=== PATIENT | female | born 1950 | race Caucasian/White ===

== ENCOUNTER → 2016-08-19 | Outpatient (CLI) | payer OTHER ==
[2015-08-25 04:55] VITALS: BP 152/75
[~2016-08-19] MED LIST: ALPR0.25 PO; AMLO5TAB4 PO; ASPI81TA9 PO; ATOR10TA PO; BUDE10.2 IH; CHOL2000 PO; FLUO20CA16 PO; FLUT16SP NS; HYDR-971 PO; HYDR25TA9 PO; HYDR50TA6 PO; MELO-150 PO; METO-269 PO; METO25TA9 PO; NAPR220C4 PO; OMEP1CAP25 PO; OMEP40CA5 PO; ONDA4TAB7 PO; OXYC-323 PO; PANT40TA3 PO; POTA20TA12 PO; PROAIR HFA8.5 GM IH; VILA20TA PO; WARF5TAB PO
--- NOTE | 2016-08-19 13:29 | RAD ---
DATE: 08/19/2016. EXAM: DIGITAL SCREEN BILAT W/CAD HISTORY: Routine screening. COMPARISON: 08/07/2015. This study was interpreted with the benefit of Computerized Aided Detection (CAD). FINDINGS: Both breasts show mild density. The small nodular density in the anteromedial right breast appears stable. No new mass or malignant appearing microcalcifications are seen. The axillae are unremarkable. IMPRESSION: No mammographic features suspicious for malignancy are identified. BI-RADS CATEGORY: 2 BENIGN FINDING(S) RECOMMENDED FOLLOW-UP: 12M 12 MONTH FOLLOW-UP PQRS compliance statement: Patient information was entered into a reminder system with a target due date for the next mammogram. Mammography is a sensitive method for finding small breast cancers, but it does not detect them all and is not a substitute for careful clinical examination. A negative mammogram does not negate a clinically suspicious finding and should not result in delay in biopsying a clinically suspicious abnormality. "Our facility is accredited by the [employer] Mammography Program."
== END | disposition home or self-care (01) ==
LOC: MAMMO 13:00
PROVIDERS: ATTEND Internal Medicine
DX: Z12.31 Encounter for screening mammogram for malignant neoplasm of breast (principal)
CPT/HCPCS: G0202; 77067

== ENCOUNTER → 2016-10-14 | Outpatient (CLI) | payer OTHER ==
[2015-08-25 04:55] VITALS: BP 152/75
[2016-10-14 09:35] LABS: CALCIUM 9.7 mg/dL (8.5-10.1); CREATININE 1.1 mg/dL (0.6-1.0); POTASSIUM 3.2 mmol/L (3.5-5.1)
== END | disposition home or self-care (01) ==
LOC: LAB 09:09
PROVIDERS: ATTEND Nurse Practitioner Occupational Health
DX: N39.0 Urinary tract infection, site not specified (principal)
CPT/HCPCS: 36415; 80048

== ENCOUNTER → 2016-10-23 | Day surgery (SDC) | payer OTHER ==
[~2016-10-23] MED LIST changes: +FLUT1DIS IH; +HYDR12.53 PO; +IV RINGERS,LACTATED 1000ML 1,000 ML IV SCH; +LIDOCAINE 2% PF Vial for OR 5 ML VIAL. ONE; +PROPOFOL 20 ML IV ONE
[2016-10-23 13:30] VITALS: BP 119/54
--- NOTE | 2016-10-24 11:34 | PATHOLOGY ---
PATHOLOGY REPORT * * * * * * * * FINAL DIAGNOSIS: Esophagus, distal, biopsy: - Hyperplastic squamous epithelium without significant inflammation. - Scant adjacent columnar epithelium with mild to moderate chronic inflammation and no evidence of intestinal metaplasia. (ADELINA:; d/t: 10/24/16) REPORT ELECTRONICALLY SIGNED BY: Scott Resendiz M.D. DATE/TIME: 10/24/2016 11:33 * * * * * * * * GROSS PATHOLOGY: Received in formalin labeled "Lester Quiñones and distal esophageal bx," are 4 segments of damian soft tissue measuring 1.7 x 0.2 x 0.2 cm in aggregate dimensions and ranging from 0.3 to 0.6 cm in maximum dimension. The specimen is submitted entirely in cassette A1. (TTL; 10/23/2016) INITIAL CPT CODE(S): A; 45947 Professional services performed [place] [email or web address] [place] [address] Technical services performed by [email or web address] at [address] [place] [address], [facility] [address] [address]. SPECIMEN(S) RECEIVED: A.Biopsy distal esophagus, history of Mccain's, r/o dysplasia CLINICAL HISTORY: Mccain's, GERD PATIENT: LESTER QUIÑONES /AGE: 1 1950 (Age: 66) PATIENT #: [id number] ALT CASE #: SPECIMEN COLLECTION DATE: 10/23/2016 SPECIMEN RECEIVED DATE: 10/23/2016 [facility] - [address] [place] [address] - PHONE: [phone] * * * END OF REPORT * * *
== END | disposition home or self-care (01) ==
LOC: ENDOS 11:59
PROVIDERS: ATTEND Internal Medicine Gastroenterology
DX: K22.70 Barrett's esophagus without dysplasia (principal); K29.50 Unspecified chronic gastritis without bleeding; I10 Essential (primary) hypertension; J45.909 Unspecified asthma, uncomplicated; M19.90 Unspecified osteoarthritis, unspecified site; F32.9 Major depressive disorder, single episode, unspecified; F41.9 Anxiety disorder, unspecified; E78.5 Hyperlipidemia, unspecified; J44.9 Chronic obstructive pulmonary disease, unspecified; F17.200 Nicotine dependence, unspecified, uncomplicated
CPT/HCPCS: 43239; J2704

== ENCOUNTER → 2017-02-19 | Outpatient (CLI) | payer OTHER ==
[2016-10-23 13:30] VITALS: BP 119/54
[~2017-02-19] MED LIST changes: +ASPI-612 PO; -ASPI81TA9 PO; -IV RINGERS,LACTATED 1000ML 1,000 ML IV SCH; -LIDOCAINE 2% PF Vial for OR 5 ML VIAL. ONE; -MELO-150 PO; +MELO15TA23 PO; -PROPOFOL 20 ML IV ONE; +WARF-78 PO; -WARF5TAB PO
[2017-02-19 10:53] LABS: ALBUMIN 3.6 g/dL (3.4-5.0); CALCIUM 9.3 mg/dL (8.5-10.1); CHOLESTEROL/HDL RATIO 3.1; GFR 55.8; POTASSIUM 3.9 mmol/L (3.5-5.1); TOTAL BILIRUBIN 0.5 mg/dL (0.2-1.0); TOTAL PROTEIN 7.3 g/dL (6.4-8.2)
[2017-02-19 11:04] LABS: CKMB MASS 1.8 ng/mL (0.0-3.6)
[2017-02-19 11:05] LABS: BASO % 1 % (0-3); EOS % 4 % (0-3); HEMATOCRIT 35.9 % (36.0-47.0); HEMOGLOBIN 12.5 g/dL (12.0-15.5); LYMPH # 1.5 x10^3/uL (1.0-4.8); LYMPH % 36 % (24-48); MEAN CORPUSCULAR HEMOGLOBIN 30 pg (25-35); MEAN CORPUSCULAR HGB CONC 35 g/dL (31-37); MEAN CORPUSCULAR VOLUME 86 fL (79-100); MONO % 8 % (0-9); NEUT % 52 % (31-73); PLATELET COUNT 220 x10^3/uL (140-400); RED BLOOD COUNT 4.16 x10^6/uL (3.50-5.40); RED CELL DISTRIBUTION WIDTH 14.2 % (11.5-14.5); WHITE BLOOD COUNT 4.1 x10^3/uL (4.0-11.0)
== END | disposition home or self-care (01) ==
LOC: LAB 10:05
PROVIDERS: ATTEND Nurse Practitioner Occupational Health
DX: Z01.419 Encounter for gynecological examination (general) (routine) without abnormal findings (principal)
CPT/HCPCS: 36415; 80053; 80061; 82306; 82553; 84443; 85027

== ENCOUNTER → 2017-03-23 | Outpatient (CLI) | payer OTHER ==
[2016-10-23 13:30] VITALS: BP 119/54
== END | disposition home or self-care (01) ==
LOC: LAB 09:47
PROVIDERS: ATTEND Nurse Practitioner Occupational Health
DX: R74.8 Abnormal levels of other serum enzymes (principal)
CPT/HCPCS: 36415; 84075

== ENCOUNTER → 2017-03-27 | Outpatient (CLI) | payer OTHER ==
[2016-10-23 13:30] VITALS: BP 119/54
--- NOTE | 2017-03-27 10:19 | RAD ---
Exam performed: CT chest and abdomen without contrast. History: Follow-up pulmonary and adrenal nodule. Date of service: 03/27/17. Comparison: CT chest and abdomen from 04/04/16. Technique: Contiguous helical acquisitions are obtained through the chest and abdomen without IV contrast. Sagittal and coronal reformatted images are obtained and reviewed. CT chest findings: Structures at the thoracic inlet through both lobes of the thyroid gland appear normal. Level IV contrast limits evaluation of neck and intrathoracic great vessels, however they appear normal in course and caliber. Atheromatous calcification of the aorta and coronary arteries is seen. No dominant mediastinal or hilar adenopathy is seen. Heart size is within limits of normal without pericardial effusion. Interrogation of lungs demonstrates no focal infiltrates or nodules. Previously seen tiny peripheral nodule in the right apex is unchanged. There is linear right basilar atelectasis. No pleural effusion or pneumothorax. Interrogation of bone windows demonstrates no bony abnormalities. Mild spondylotic changes are seen. Impression: 1. Previously seen tiny parenchymal opacity in the right upper lobe appears similar End impression. 2. No additional parenchymal abnormalities noted. End impression CT abdomen findings: Low attenuating 2.8 x 2.6 cm right adrenal nodule is stable. Lack of IV contrast limits evaluation of abdominal viscera however the liver, spleen and pancreas appear normal. Cholecystectomy. Left adrenal gland and bilateral kidneys are normal. There is no hydronephrosis or perinephric stranding. Mild atheromatous calcification of the aorta. Small and large bowel loops are nondilated and unremarkable. Scattered stool in the colon. No free fluid. Bones are normal. Impression: 1. Stable low attenuating right adrenal nodule system with residual adenoma. 2. No additional abnormality seen. PQRS Compliance Statement: One or more of the following individualized dose reduction techniques were utilized for this examination: 1. Automated exposure control 2. Adjustment of the mA and/or kV according to patient size 3. Use of iterative reconstruction technique
== END | disposition home or self-care (01) ==
LOC: CT 15:56
PROVIDERS: ATTEND Nurse Practitioner Occupational Health
DX: D35.01 Benign neoplasm of right adrenal gland (principal); J98.11 Atelectasis
CPT/HCPCS: 71250; 74150

== ENCOUNTER → 2017-03-27 | Outpatient (CLI) | payer OTHER ==
[2016-10-23 13:30] VITALS: BP 119/54
== END | disposition home or self-care (01) ==
LOC: US 08:29
PROVIDERS: ATTEND Internal Medicine Cardiovascular Disease
DX: I87.2 Venous insufficiency (chronic) (peripheral) (principal); D35.01 Benign neoplasm of right adrenal gland
CPT/HCPCS: 93970

== ENCOUNTER → 2017-04-22 | Outpatient (CLI) | payer OTHER ==
[2016-10-23 13:30] VITALS: BP 119/54
[~2017-04-22] MED LIST changes: +METO-239 PO; -METO25TA9 PO
--- NOTE | 2017-04-24 18:07 | RAD ---
APPROVED REPORT Bilateral Lower Extremity Venous Study for DVT Patient Location: OUT-PATIENT Indications s/p b/l gsv ablations Vein Imaging (Right) CFV (R): Compressible SFJ (R): Compressible FEM (R): Compressible POP (R): Compressible DFV (R): Compressible PTV (R): Spontaneous GSV (R): Absent Flow Peroneals (R): Spontaneous Vein Imaging (Left) CFV (L): Compressible SFJ (L): Compressible FEM (L): Compressible POP (L): Compressible DFV (L): Compressible PTV (L): Spontaneous GSV (L): Absent Flow Peroneals (L): Spontaneous Doppler Evaluation (Right) CFV (R): Spontaneous POP (R):Spontaneous Doppler Evaluation (Left) CFV (L):Spontaneous POP (L):Spontaneous Findings The bilateral deep veins of the lower extremities were evaluated for thrombus. The bilateral saphenof emoral junctions and common femoral veins do not demonstrate any evidence of thrombus and are fully c ompressible. The bilateral saphenofemoral veins were not well visualized but grossly do not demonstra te any evidence of thrombus and appear to be compressible with normal color Doppler and spectral flow . Bilateral popliteal veins are compressible with normal spectral flow. The below-knee veins are not well visualized but demonstrate spontaneous flow. The bilateral greater saphenous veins on limited pr oximal imaging appear to demonstrate no evidence of flow consistent with recent history of ablation. Critical Notification Critical Value: No <Conclusion> Negative for thrombus in the bilateral deep veins of the lower extremities Successful bilateral greater saphenous vein ablations.
== END | disposition home or self-care (01) ==
LOC: US 08:34
PROVIDERS: ATTEND Internal Medicine Cardiovascular Disease
DX: I82.493 Acute embolism and thrombosis of other specified deep vein of lower extremity, bilateral (principal); Z98.890 Other specified postprocedural states
CPT/HCPCS: 93970

== ENCOUNTER 2017-05-20 07:48 | Emergency (ER) | payer OTHER ==
[2017-05-20 07:56] VITALS: BP 173/79
--- NOTE | 2017-05-20 08:10 | PHYS DOC ---
Past Medical History Past Medical History: Anxiety, Asthma, COPD, Depression, GERD, High Cholesterol , Hypertension, Other Additional Past Medical Histor: TREMOR Past Surgical History: Cholecystectomy, Hysterectomy, Other Alcohol Use: None Drug Use: None Adult General Chief Complaint Chief Complaint: PAIN ON URINATION [facility] HPI Patient is a 66 year old female with history of hypertension, high cholesterol , acid reflex, who presents today with bladder spasms and frequency that began this morning. Patient denies any fever abdominal pain nausea vomiting. Patient denies any hematuria. Review of Systems Review of Systems Constitutional: Denies fever or chills [] Eyes: Denies change in visual acuity, redness, or eye pain [] HENT: Denies nasal congestion or sore throat [] Respiratory: Denies cough or shortness of breath [] Cardiovascular: No additional information not addressed in [facility] [] GI: Denies abdominal pain, nausea, vomiting, bloody stools or diarrhea [] : Bladder spasms and frequency, denies hematuria Musculoskeletal: Denies back pain or joint pain [] Integument: Denies rash or skin lesions [] Neurologic: Denies headache, focal weakness or sensory changes [] Endocrine: Denies polyuria or polydipsia [] Allergies Allergies Allergies Coded Allergies Type Severity Reaction Last Updated Verified regadenoson Allergy Severe LIPS SWELLED AND HIVES ON CHEST AND ARMS 10/23/16 Yes I S O L A T I O N *CONTACT* Allergy Unknown 10/23/16 Yes Physical Exam Physical Exam Constitutional: Well developed, well nourished, no acute distress, non-toxic appearance. [] HENT: Normocephalic, atraumatic, bilateral external ears normal, oropharynx moist, no oral exudates, nose normal. [] Eyes: PERRLA, EOMI, conjunctiva normal, no discharge. [] Neck: Normal range of motion, no tenderness, supple, no stridor. [] Cardiovascular:Heart rate regular rhythm, no murmur [] Lungs & Thorax: Bilateral breath sounds clear to auscultation [] Abdomen: Bowel sounds normal, soft, no tenderness, no masses, no pulsatile masses. [] Skin: Warm, dry, no erythema, no rash. [] Back: No tenderness, no CVA tenderness. [] Extremities: No tenderness, no cyanosis, no clubbing, ROM intact, no edema. [] Neurologic: Alert and oriented X 3, normal motor function, normal sensory function, no focal deficits noted. Essential tremors noted. Psychologic: Affect normal, judgement normal, mood normal. [] Current Patient Data Vital Signs Vital Signs Date Time Temp Pulse Resp B/P (MAP) Pulse Ox O2 Delivery O2 Flow Rate FiO2 05/20/17 07:56 99.1 81 16 173/79 (110) 97 Room Air 99.1 Lab Values Laboratory Tests Test 05/20/17 08:05 Urine Collection Type Unknown Urine Color Yellow Urine Clarity Cloudy Urine pH 5.5 Urine Specific Fleischmanns 1.020 Urine Protein 30 mg/dL (NEG-TRACE) Urine Glucose (UA) Negative mg/dL (NEG) Urine Ketones (Stick) Negative mg/dL (NEG) Urine Blood Large (NEG) Urine Nitrite Negative (NEG) Urine Bilirubin Negative (NEG) Urine Urobilinogen Dipstick 0.2 mg/dL (0.2 mg/dL) Urine Leukocyte Esterase Large (NEG) Urine RBC 11-20 /HPF (0-2) Urine WBC >40 /HPF (0-4) Urine Squamous Epithelial Cells Few /LPF Urine Bacteria Few /HPF (0-FEW) EKG EKG [] Radiology/Procedures Radiology/Procedures [] Course & Med Decision Making Course & Med Decision Making Pertinent Labs and Imaging studies reviewed. (See chart for details) This is a 66-year-old female patient presenting with bladder spasms and frequency. Urine positive for UTI. Discharged with Cipro and Pyridium. Push fluids. OTC pain relievers. BP was 173/79 with hx of HTN-advised to take her BP medicines and follow up with PCP. Carlotta Disclaimer Carlotta Disclaimer This electronic medical record was generated, in whole or in part, using a voice recognition dictation system. Departure Departure Impression: Primary Impression: Urinary tract infection Additional Impression: Hypertension Disposition: 01 HOME, SELF-CARE Condition: STABLE Referrals: MATTHEW SOMERS MD (PCP) Follow-up in one week Patient Instructions: Hypertension, Urinary Tract Infection, Prra-rd-Lybk Additional Instructions: You were seen with urinary tract infection. Ensure you complete your antibiotics. Take sswm-ydt-pjhsbxs pain relievers and the prescribed Pyridium as needed for pain. Push fluids. Your blood pressure was 173/79. This is elevated. Ensure you are taking your blood pressure medicines and follow up with your primary care doctor in seven days. Come back to the ED if symptoms worsen. Scripts Phenazopyridine Hcl (PYRIDIUM) 100 Mg Tablet 100 MG PO TID, #8 TAB Prov: TED CHOWDARY APRN 05/20/17 Ciprofloxacin Hcl (CIPRO) 500 Mg Tablet 1 TAB PO BID, #14 TAB Prov: TED CHOWDARY APRN 05/20/17 Problem Qualifiers Primary Impression: Urinary tract infection Urinary tract infection type: acute cystitis Hematuria presence: without hematuria Qualified Codes: N30.00 - Acute cystitis without hematuria Additional Impression: Hypertension Hypertension type: unspecified Qualified Codes: I10 - Essential (primary) hypertension TED CHOWDARY APRN May 20, 2017 08:10
[2017-05-20 08:14] LABS: BILIRUBIN,URINE NEGATIVE (NEG); GLUCOSE,URINE NEGATIVE (NEG); NITRITE,URINE NEGATIVE (NEG); PH,URINE 5.5; PROTEIN,URINE 30 mg/dL (NEG-TRACE); UROBILINOGEN,URINE 0.2 mg/dL (0.2 mg/dL)
[2017-05-20 08:34] LABS: BACTERIA,URINE FEW /HPF (0-FEW); SQUAMOUS EPITHELIAL CELL,UR FEW /LPF; WBC,URINE >40 /HPF (0-4)
[2017-05-20] MEDS ORDERED: PHENAZOPYRIDINE 200 MG TABLET. PO ONE (08:45)
[2017-05-20] MEDS ORDERED: CIPROFLOXACIN HCL 250 MG TABLET. PO ONE (08:45)
[2017-05-20] MEDS ORDERED: PHEN100T82 PO (08:47)
[2017-05-20] MEDS ORDERED: CIPR500T94 PO (08:47)
== END 2017-05-20 09:20 | disposition home or self-care (01) ==
LOC: ER 07:48
DX: N30.00 Acute cystitis without hematuria (principal); I10 Essential (primary) hypertension; F41.9 Anxiety disorder, unspecified; J44.9 Chronic obstructive pulmonary disease, unspecified; F32.9 Major depressive disorder, single episode, unspecified; K21.9 Gastro-esophageal reflux disease without esophagitis; E78.00 Pure hypercholesterolemia, unspecified; Z88.8 Allergy status to other drugs, medicaments and biological substances; Z91.041 Radiographic dye allergy status
CPT/HCPCS: 81001; 87086; 99284

== ENCOUNTER → 2017-10-01 | Outpatient (CLI) | payer OTHER, MEDICARE | END | disposition home or self-care (01) | LOC: MRI 15:44 | DX: S43.432A Superior glenoid labrum lesion of left shoulder, initial encounter (principal); X58.XXXA Exposure to other specified factors, initial encounter; Y93.89 Activity, other specified; Y92.89 Other specified places as the place of occurrence of the external cause; Y99.8 Other external cause status | CPT/HCPCS: 73221 ==

== ENCOUNTER → 2017-10-08 | Outpatient (CLI) | payer OTHER, MEDICARE ==
[2017-10-08 16:27] LABS: ADD MAN DIFF? NO; BASO % 0 % (0-3); EOS # 0.1 x10^3/uL (0.0-0.7); EOS % 2 % (0-3); HEMATOCRIT 38.4 % (36.0-47.0); HEMOGLOBIN 12.8 g/dL (12.0-15.5); LYMPH # 2.4 x10^3/uL (1.0-4.8); LYMPH % 41 % (24-48); MEAN CORPUSCULAR HEMOGLOBIN 30 pg (25-35); MEAN CORPUSCULAR HGB CONC 33 g/dL (31-37); MEAN CORPUSCULAR VOLUME 89 fL (79-100); MONO # 0.5 x10^3/uL (0.0-1.1); MONO % 8 % (0-9); NEUT # 2.8 x10^3uL (1.8-7.7); NEUT % 49 % (31-73); PLATELET COUNT 254 x10^3/uL (140-400); RED BLOOD COUNT 4.31 x10^6/uL (3.50-5.40); RED CELL DISTRIBUTION WIDTH 14.6 % (11.5-14.5); WHITE BLOOD COUNT 5.8 x10^3/uL (4.0-11.0)
[2017-10-08 16:31] LABS: ALBUMIN 3.9 g/dL (3.4-5.0); ALK PHOS 145 U/L (46-116); ALT (SGPT) 23 U/L (14-59); ANION GAP 8 (6-14); AST (SGOT) 24 U/L (15-37); BLOOD UREA NITROGEN 19 mg/dL (7-20); BUN/CREATININE RATIO 19 (6-20); CALCIUM 9.8 mg/dL (8.5-10.1); CARBON DIOXIDE 27 mmol/L (21-32); CHLORIDE 104 mmol/L (98-107); CHOLESTEROL 263 mg/dL (0-200); GFR 55.6; GLUCOSE 86 mg/dL (70-99); HDLC 56 mg/dL (40-60); LDLC 178 mg/dL (0-100); NON-HDL CHOLESTEROL 207 mg/dL (0-129); POTASSIUM 3.9 mmol/L (3.5-5.1); SODIUM 139 mmol/L (136-145); TOTAL BILIRUBIN 0.5 mg/dL (0.2-1.0); TOTAL PROTEIN 7.7 g/dL (6.4-8.2); TRIGLYCERIDES 147 mg/dL (0-150); VLDLC 29 mg/dL (0-40)
[2017-10-08 16:32] LABS: CHOLESTEROL/HDL RATIO 4.7
[2017-10-08 16:39] LABS: THYROID STIM HORMONE (TSH) 1.302 uIU/mL (0.358-3.74)
[2017-10-08 16:39] LABS: FREE T4 0.88 ng/dL (0.76-1.46)
[2017-10-08 17:32] LABS: SEDIMENTATION RATE 27 (0-25)
[2017-10-09 01:18] LABS: RHEUMATOID FACTOR <10.0 IU/mL (0.0-13.9)
== END | disposition home or self-care (01) ==
LOC: LAB 15:44
DX: I10 Essential (primary) hypertension (principal); E27.9 Disorder of adrenal gland, unspecified; M25.512 Pain in left shoulder; E78.4 Other hyperlipidemia
CPT/HCPCS: 36415; 80053; 80061; 84439; 84443; 85025; 85651; 86431

== ENCOUNTER → 2017-11-02 | Outpatient (CLI) | payer OTHER, MEDICARE | END | disposition home or self-care (01) | LOC: RAD 10:57 | DX: J18.9 Pneumonia, unspecified organism (principal); E78.5 Hyperlipidemia, unspecified; I10 Essential (primary) hypertension; Z87.891 Personal history of nicotine dependence | CPT/HCPCS: 71046 ==

== ENCOUNTER → 2018-01-11 | Outpatient (CLI) | payer OTHER, MEDICARE ==
[2018-01-11 11:14] LABS: ALBUMIN 3.5 g/dL (3.4-5.0); ALK PHOS 131 U/L (46-116); ALT (SGPT) 25 U/L (14-59); ANION GAP 9 (6-14); AST (SGOT) 19 U/L (15-37); BLOOD UREA NITROGEN 14 mg/dL (7-20); BUN/CREATININE RATIO 12 (6-20); CALCIUM 9.2 mg/dL (8.5-10.1); CARBON DIOXIDE 28 mmol/L (21-32); CHLORIDE 105 mmol/L (98-107); CHOLESTEROL 167 mg/dL (0-200); CREATINE KINASE 95 U/L (26-192); CREATININE 1.2 mg/dL (0.6-1.0); GFR 45.1; GLUCOSE 89 mg/dL (70-99); HDLC 49 mg/dL (40-60); LDLC 96 mg/dL (0-100); NON-HDL CHOLESTEROL 118 mg/dL (0-129); POTASSIUM 4.1 mmol/L (3.5-5.1); SODIUM 142 mmol/L (136-145); TOTAL BILIRUBIN 0.5 mg/dL (0.2-1.0); TOTAL PROTEIN 6.9 g/dL (6.4-8.2); TRIGLYCERIDES 109 mg/dL (0-150); VLDLC 22 mg/dL (0-40)
[2018-01-11 11:18] LABS: CHOLESTEROL/HDL RATIO 3.4
== END | disposition home or self-care (01) ==
LOC: LAB 10:07
DX: E78.5 Hyperlipidemia, unspecified (principal)
CPT/HCPCS: 36415; 80053; 80061; 82550

== ENCOUNTER → 2018-03-25 | Outpatient (CLI) | payer OTHER, MEDICARE ==
[~2018-03-25] MED LIST changes: +CIPR500T94 PO; +PHEN100T82 PO
--- NOTE | 2018-03-25 14:26 | KCIC ---
EXAM: Dual energy x-ray absorptiometry (DEXA). HISTORY: Postmenopausal female presents for osteoporosis screening. COMPARISON: None. TECHNIQUE: Dual energy x-ray absorptiometry of the lumbar spine and right hip was performed. Calculation of bone mineral density based on standard deviations above or below the expected young adult normal value (T-score) was completed. FINDINGS: The average bone mineral density in the 1st through 4th lumbar vertebrae is 0.955 g/cmxcm, corresponding with a T-score of -0.8. The average total bone mineral density in the right hip is 0.830 g/cmxcm, corresponding with a T-score of -0.9. IMPRESSION: Normal bone mineral density. Note: Definitions established by the World Health Organization: 1. Normal: T-score is -1.0 or above. 2. Osteopenia: T-score is between -1.0 and -2.5 . 3. Osteoporosis: T-score is -2.5 or below. Electronically signed by: Bernadette Knott MD (03/25/2018 2:22 PM) [facility]
--- NOTE | 2018-03-25 20:36 | KCIC ---
Bilateral digital screening mammograms with 3D Tomosynthesis: Reason for examination: Routine screening. Comparison is made to previous studies dated 08/19/2016 and 08/07/2015. Bilateral mammograms in CC and oblique projections were obtained with 2-D imaging and 3-D tomosynthesis imaging on a Siemens Inspiration unit and reviewed on the workstation. Interpretation was made with the benefit of CAD. The skin and nipples show no abnormalities. No abnormal axillary lymph nodes are seen. The breast parenchyma shows scattered fibroglandular density. (Breast density: Category B.) There continues to be a small nodule in the 3:00 A position of the right breast which is unchanged. There is however a small nodule developing at the 6:00 B position of the left breast measuring 5.2 mm in size. This is fairly well-circumscribed and may represent a cyst but recommend further evaluation with ultrasound. There are no other new dominant masses, suspicious calcifications or architectural distortions. Impression: 5.2 mm circumscribed nodule at the 6:00 B position of the left breast. Recommend further evaluation with ultrasound. BI-RADS Category 0: Incomplete. Needs additional imaging evaluation. "Our facility is accredited by the [employer] Mammography [employer]." This patient's information has been entered into a reminder system for the patient to be notified with the results of her examination and a target date for the next mammogram. Electronically signed by: Taisha Amato MD (03/25/2018 8:33 PM) [id number]
== END | disposition home or self-care (01) ==
LOC: KCIC MAMMO 13:53
PROVIDERS: ATTEND Physician Assistant Surgical
DX: Z12.31 Encounter for screening mammogram for malignant neoplasm of breast (principal); Z13.820 Encounter for screening for osteoporosis; I10 Essential (primary) hypertension; E78.5 Hyperlipidemia, unspecified; E78.00 Pure hypercholesterolemia, unspecified; J44.9 Chronic obstructive pulmonary disease, unspecified; Z96.642 Presence of left artificial hip joint; Z87.891 Personal history of nicotine dependence; Z90.49 Acquired absence of other specified parts of digestive tract; Z86.010 Personal history of colon polyps; Z88.8 Allergy status to other drugs, medicaments and biological substances; Z78.0 Asymptomatic menopausal state; Z82.49 Family history of ischemic heart disease and other diseases of the circulatory system
CPT/HCPCS: 77063; 77067; 77080

== ENCOUNTER → 2018-04-01 | Outpatient (CLI) | payer OTHER, MEDICARE ==
[~2018-04-01] MED LIST changes: +IOHEXOL 300 MG/ML 100ML VIAL. IV ONE
[2018-04-01 10:10] LABS: CREATININE 1.1 mg/dL (0.6-1.0); GFR 49.8
--- NOTE | 2018-04-01 12:13 | RAD ---
CLINICAL HISTORY: SOA AND PT STATES F/U A "SPOT" IN CHEST COMPARISON: 03/27/2017 TECHNIQUE: CT of the chest following the administration of intravenous contrast. Axial, coronal and sagittal reformatted images were generated. ---PQRS compliance statement - One or more of the following individualized dose reduction techniques were utilized for this study: 1. Automated exposure control 2. Adjustment of the mA and/or kV according to patient size 3. Use of iterative reconstruction technique--- FINDINGS: CHEST: The heart is not enlarged. No pericardial effusion. Coronary artery calcifications are seen. Atherosclerotic calcifications of the aorta are seen. No mediastinal or hilar lymphadenopathy by size criteria. No axillary lymphadenopathy. Base of the neck is unremarkable. Dependent opacities in the peripheral right lower lobe likely atelectasis/scarring. A 5 mm right upper lobe lung nodule (series 2 image 18) is stable to 03/27/2017. No pleural effusion or pneumothorax. Visualized Upper abdomen: Right upper pole renal subcentimeter hypodense lesion is too small to characterize. Left upper pole renal cystic lesion is seen. Small hiatal hernia. Cholecystectomy clips are seen. Bones: Segmentation anomaly at T10-11 is seen with partial fusion of the vertebral bodies anteriorly. No definite aggressive osseous lesion is identified. IMPRESSION: 1. 5 mm right upper lobe lung nodule is stable when compared to 03/27/2017. 2. Minimal dependent opacities in the peripheral right lower lobe likely atelectasis/scarring. 3. No thoracic lymphadenopathy. 4. Small hiatal hernia. Electronically signed by: Alex Lazcano MD (04/01/2018 12:09 PM) [id number]
== END | disposition home or self-care (01) ==
LOC: CT 09:03
PROVIDERS: ATTEND Internal Medicine Hematology & Oncology
DX: K44.9 Diaphragmatic hernia without obstruction or gangrene (principal); I25.10 Atherosclerotic heart disease of native coronary artery without angina pectoris; I70.0 Atherosclerosis of aorta; R91.1 Solitary pulmonary nodule; I10 Essential (primary) hypertension; E78.00 Pure hypercholesterolemia, unspecified; M16.0 Bilateral primary osteoarthritis of hip; J44.9 Chronic obstructive pulmonary disease, unspecified; K21.9 Gastro-esophageal reflux disease without esophagitis; Z87.891 Personal history of nicotine dependence; Z86.010 Personal history of colon polyps; Z90.49 Acquired absence of other specified parts of digestive tract; Z90.710 Acquired absence of both cervix and uterus; Z88.8 Allergy status to other drugs, medicaments and biological substances; Z82.49 Family history of ischemic heart disease and other diseases of the circulatory system
CPT/HCPCS: 36415; 71260; 82565; 84520

== ENCOUNTER → 2018-04-14 | Outpatient (CLI) | payer OTHER, MEDICARE ==
[~2018-04-14] MED LIST changes: -IOHEXOL 300 MG/ML 100ML VIAL. IV ONE
[2018-04-14 11:02] LABS: BASO % 1 % (0-3); EOS # 0.1 x10^3/uL (0.0-0.7); EOS % 3 % (0-3); HEMOGLOBIN 12.5 g/dL (12.0-15.5); LYMPH # 1.6 x10^3/uL (1.0-4.8); LYMPH % 36 % (24-48); MEAN CORPUSCULAR HEMOGLOBIN 30 pg (25-35); MEAN CORPUSCULAR HGB CONC 34 g/dL (31-37); MEAN CORPUSCULAR VOLUME 90 fL (79-100); MONO # 0.4 x10^3/uL (0.0-1.1); MONO % 8 % (0-9); NEUT # 2.2 x10^3uL (1.8-7.7); NEUT % 52 % (31-73); PLATELET COUNT 244 x10^3/uL (140-400); RED BLOOD COUNT 4.12 x10^6/uL (3.50-5.40); RED CELL DISTRIBUTION WIDTH 13.5 % (11.5-14.5); WHITE BLOOD COUNT 4.3 x10^3/uL (4.0-11.0)
[2018-04-14 11:12] LABS: PROTHROMBIN TIME PATIENT 11.9 SEC (11.7-14.0)
[2018-04-14 11:21] LABS: ALBUMIN 3.5 g/dL (3.4-5.0); ALBUMIN/GLOBULIN RATIO 0.9 (1.0-1.7); CALCIUM 9.6 mg/dL (8.5-10.1); GFR 55.6; POTASSIUM 3.9 mmol/L (3.5-5.1); TOTAL BILIRUBIN 0.5 mg/dL (0.2-1.0); TOTAL PROTEIN 7.2 g/dL (6.4-8.2)
[2018-04-16 13:35] LABS: VON WILLEBRAND FACTOR AG SEE SEPARATE REPORT
== END | disposition home or self-care (01) ==
LOC: LAB 10:25
PROVIDERS: ATTEND Internal Medicine Hematology & Oncology
DX: R06.02 Shortness of breath (principal); R23.3 Spontaneous ecchymoses; J44.9 Chronic obstructive pulmonary disease, unspecified; M16.11 Unilateral primary osteoarthritis, right hip; Z91.09 Other allergy status, other than to drugs and biological substances; Z88.8 Allergy status to other drugs, medicaments and biological substances; Z96.642 Presence of left artificial hip joint; Z87.891 Personal history of nicotine dependence; Z86.010 Personal history of colon polyps; Z90.49 Acquired absence of other specified parts of digestive tract; Z90.710 Acquired absence of both cervix and uterus; Z82.49 Family history of ischemic heart disease and other diseases of the circulatory system
CPT/HCPCS: 36415; 80053; 85025; 85246; 85610; 85730

== ENCOUNTER → 2018-05-04 | Outpatient (CLI) | payer OTHER, MEDICARE ==
[~2018-05-04] MED LIST changes: +ATROPINE 0.5 MG/5 ML DISP.SYRINGE. IV ONE; +ONDANSETRON PF 4 MG/2 ML VIAL. IM ONE; +ONDANSETRON PF 4 MG/2 ML VIAL. IV ONE; +ONDANSETRON PF 4 MG/2 ML VIAL. ONE
--- NOTE | 2018-05-04 08:44 | CARD ---
MR#: [id number] Date of Study: 05/04/2018 Ordering Physician: LEONA EDMONDS, Referring Physician: LEONA EDMONDS Tech: Justyna Mcmillan RDCS APPROVED REPORT EXAM: Two-dimensional and M-mode echocardiogram with Doppler and color Doppler. Other Information Quality : GoodHR: 61bpm Rhythm : NSR INDICATION Hypertension/HCVD 2D DIMENSIONS RVDd2.9 (2.9-3.5cm)IVSd1.0 (0.7-1.1cm) Aortic Root(2D)3.0 (2.0-3.7cm)LVDd4.6 (3.9-5.9cm) LVOT Diameter1.9 (1.8-2.4cm)PWd1.0 (0.7-1.1cm) LVDs2.9 (2.5-4.0cm)FS (%) 36.7 % SV63.6 ml M-Mode DIMENSIONS Left Atrium(MM)4.10 (2.5-4.0cm)Aortic Root2.83 (2.2-3.7cm) Aortic Valve AoV Peak Vince.151.6cm/sAoV VTI35.3cm AO Peak GR.9.2mmHgLVOT Peak Vince.108.6cm/s AO Mean GR.5mmHgAVA (VMAX)1.98cm2 YANELY (VTI)2.10cm2 Mitral Valve MV E Gcpajtfm514.0cm/sMV E Peak Gr.5mmHg MV DECEL [id number] A Ujbwfjrp193.7cm/s MV E Mean Gr.1mmHgE/A Ratio1.1 MV A Kzunihoh301cm Pulmonary Valve PV Peak Bfgihkdc325.5cm/s Pulmonary Vein S1 Hscabyzh49.7cm/sD2 Xikutsid85.8cm/s PVa [id number] LEFT VENTRICLE The left ventricle is normal size. There is normal left ventricular wall thickness. The left ventricu lar systolic function is normal and the ejection fraction is within normal range. The Ejection Fracti on is 55-60%. There is normal LV segmental wall motion. The left ventricular diastolic function and f illing is normal for age. RIGHT VENTRICLE The right ventricle is normal size. There is normal right ventricular wall thickness. The right ventr icular systolic function is normal. ATRIA The left atrium is borderline dilated. The right atrium size is normal. The interatrial septum is int act with no evidence for an atrial septal defect or patent foramen ovale as noted on 2-D or Doppler i maging. AORTIC VALVE The aortic valve is thickened but opens well. The aortic valve is trileaflet. Doppler and Color Flow revealed no significant aortic regurgitation. There is no significant aortic valvular stenosis. MITRAL VALVE The mitral valve is normal in structure and function. There is no evidence of mitral valve prolapse. There is no mitral valve stenosis. Doppler and Color-flow revealed trace mitral regurgitation. TRICUSPID VALVE The tricuspid valve is normal in structure and function. Doppler and Color Flow revealed no tricuspid valve regurgitation noted. There is no tricuspid valve prolapse or vegetation. There is no tricuspid valve stenosis. PULMONIC VALVE The pulmonary valve is normal in structure and function. Doppler and Color Flow revealed trace pulmon ic valvular regurgitation. There is no pulmonic valvular stenosis. GREAT VESSELS The aortic root is normal in size. The ascending aorta is normal in size. PERICARDIAL EFFUSION There is no evidence of significant pericardial effusion. Critical Notification Critical Value: No <Conclusion> The left ventricle is normal size. The left ventricular systolic function is normal and the ejection fraction is within normal range. The Ejection Fraction is 55-60%. There is no significant aortic valvular stenosis. Doppler and Color Flow revealed no significant aortic regurgitation. Doppler and Color-flow revealed trace mitral regurgitation. Doppler and Color Flow revealed no tricuspid valve regurgitation noted. Signed by : Pepito Doll MD Electronically Approved : 05/04/2018 08:43:40
--- NOTE | 2018-05-04 14:38 | RAD ---
MR#: [id number] Date of Study: 05/04/2018 Ordering Physician: LEONA EDMONDS Referring Physician: JANAY IRVING Tech: Francis Tam RT (R) (N) APPROVED REPORT Test Type: Pharmacological Stress Nurse/Tech: Cj Art RN Test Indications: swelling in lower legs Cardiac History: asthma, COPD, HTN Medications: See Electronic Medical Record Medical History: See Electronic Medical Record Resting ECG: SR Resting Heart Rate: 69 bpm Resting Blood Pressure: 129/71mmHg Pretest Chest Pain: None Nurse/Tech Notes lungs CTA, S1S2 Consent: The procedure was explained to the patient in lay terms. Informed consent was witnessed. [place] eout was entered into [employer]. History and Stress Test performed by Cj Art RN Pharm. Details Pharmacologic stress testing was performed using Dobutamine with a maximal infusion of 40 mcg/mg/min. Atropine 0.5 mg, given intravenously for Other. Stress Symptoms dyspnea, no chest pain. Dobutamine was titrated to 40mcg/kg/min and atropine 0.5 mg was given to yovanny ch target heart rate. Zofran was given for nausea. BP dropped but patient recovered by termination of test POST EXERCISE Reason for Termination: Reached target heart rate Target HR: 131 Max HR: 136 bpm Max Blood Pressure: 181/64mmHg Blood Pressure response to exercise: Abnormal blood pressure response during stress. Heart Rate response to exercise: normal response Chest Pain: No. Arrhythmia: No. ST Change: No. INTERPRETATION Stress EKG Conclusion: Baseline EKG showed sinus rhythm. No ischemic changes at peak stress. No arr hythmias. Imaging Protocol IMAGE PROTOCOL: Rest Tc-99m/stress Tc-99m 1 day Rest: Stress: Viability: Radiopharm.Tc99m ZzskgtdikVf30p Sestamibi Dose12.1mCi 32.1mCi Duration 13min. 13min. Img Date 05/04/2018 05/04/2018 Inj-Img [id number]. 60min. Rest Admin Site:IV - Left AntecubitalAdministrator:HENRIETTA Capone Stress Admin Site: IV - Left AntecubitalAdministrator: AMBER CaponeMT STRESS DATA End Diast. Vol.71.0mlLVEDV index BSA34.0ml End Syst. Vol.22.0mlLVESV index BSA11.0ml Myocardial Yxuv455.0gEject. Ccprgvvt09.0% Stress Scores Regional WT1.00Summed WT3.00 Regional WM0.00Summed WM8.00 Study quality was good. Left Ventricular size was Normal at Rest and Stress. Lung uptake was . Left Ventricular ejection fraction is 69%. The rest and stress images show normal perfusion, normal contraction and thickening. LV Perf. Quant 17 Seg. SSS0.00 17 Seg. SRS3.00 17 Seg. SDS0.00 Stress Defect Extent (% LAD)0.00Rest Defect Extent (% LAD)0.00Rev. Defect Extent (% LAD)0.00 Stress Defect Extent (% LCX) 0.00Rest Defect Extent (% LCX)8.80Rev. Defect Extent (% LCX)0.00 Stress Defect Extent (% RCA)0.00Rest Defect Extent (% RCA)0.00Rev. Defect Extent (% RCA)0.00 Stress Defect Extent (% JAD)0.00Rest Defect Extent (% JAD)2.00Rev. Defect Extent (% JAD)0.00 Conclusion 1. Dobutamine infusion cardioisotope stress test did not show any evidence of ischemia or infarct. 2. Normal left ventricular systolic function with ejection fraction calculated at 69%. 3. Low risk for cardiac events. Signed by : Leona Edmonds, Electronically Approved : 05/04/2018 14:37:53
--- NOTE | 2018-05-05 08:25 | RAD ---
MR#: [id number] Date of Study: 05/04/2018 Ordering Physician: LEONA EDMONDS, Referring Physician: LEONA EDMONDS, Tech: Mickey Christopher, VITALIY, RDMS, RVT, RDCS, RTR APPROVED REPORT Patient Location : OUT-PATIENT Indications venous insufficiency Findings Grayscale images of the bilateral saphenofemoral junctions do not reveal any obvious evidence of thro mbus. The bilateral greater saphenous veins are previously ablated. The bilateral lesser saphenous ve ins do not show any evidence of reflux. Critical Notification Critical Value: No <Conclusion> Prior bilateral greater saphenous vein ablations. No reflux in the bilateral lesser saphenous veins Signed by : Jose Aguilar, Electronically Approved : 05/05/2018 08:24:08
== END | disposition home or self-care (01) ==
LOC: ECHO 08:12
PROVIDERS: ATTEND Internal Medicine Cardiovascular Disease
DX: I82.813 Embolism and thrombosis of superficial veins of lower extremities, bilateral (principal); R06.09 Other forms of dyspnea; J44.9 Chronic obstructive pulmonary disease, unspecified; I10 Essential (primary) hypertension; Z87.891 Personal history of nicotine dependence
CPT/HCPCS: 78452; 93017; 93306; 93970; 96374; 96375; 96376; A9500; J0461; J1250

== ENCOUNTER → 2020-04-18 | Outpatient (CLI) | payer MEDICARE, OTHER ==
[~2020-04-18] MED LIST changes: +ALBU2.5V8 IH; -ASPI-612 PO; +ASPI-886 PO; -ATROPINE 0.5 MG/5 ML DISP.SYRINGE. IV ONE; +ATROPINE 1 MG/10 ML DISP.SYRINGE. IM ONE; +ATROPINE 1 MG/10 ML DISP.SYRINGE. IV ONE; +DOBUTAMINE IV ONE; +HYDR-2145 PO; +HYDR-3164 PO; -HYDR-971 PO; -HYDR12.53 PO; +HYDR12.575 PO; -HYDR25TA9 PO; +NORMAL SALINE IV ONE; +OMEP40CA45 PO; -OMEP40CA5 PO; -ONDANSETRON PF 4 MG/2 ML VIAL. IM ONE; -ONDANSETRON PF 4 MG/2 ML VIAL. IV ONE; -ONDANSETRON PF 4 MG/2 ML VIAL. ONE; -OXYC-323 PO; +OXYC1TAB15 PO; -PANT40TA3 PO; +PANT40TA77 PO; -PROAIR HFA8.5 GM IH; -WARF-78 PO; +WARF5TAB2 PO
--- NOTE | 2020-04-18 11:14 | NUR ---
Called Dr. Stark to inform him that patient's heart rate would not increase to target heart rate of 138. Highest rate reached was 115 with Dobutamine infusion and 1mg of Atropine. Report to be placed in the [employer] system for Dr. Stark to review.
--- NOTE | 2020-04-19 12:58 | CARD ---
MR#: [id number] Date of Study: 04/18/2020 Ordering Physician: LEONA EDMONDS, Referring Physician: LEONA EDMONDS Tech: Luci Mosley RDCS APPROVED REPORT EXAM: Two-dimensional and M-mode echocardiogram with Doppler and color Doppler. Other Information Quality : Good INDICATION Atrial Fibrillation 2D DIMENSIONS RVDd3.5 (2.9-3.5cm)Left Atrium(2D)3.7 (1.6-4.0cm) IVSd1.1 (0.7-1.1cm)Aortic Root(2D)2.8 (2.0-3.7cm) LVDd4.1 (3.9-5.9cm)LVOT Diameter2.0 (1.8-2.4cm) PWd1.0 (0.7-1.1cm)LVDs2.5 (2.5-4.0cm) FS (%) 39.2 %SV50.9 ml LVEF(%)60.0 (>50%) Aortic Valve AoV Peak Vince.172.1cm/sAoV VTI36.3cm AO Peak GR.11.8mmHgLVOT Peak Vince.153.7cm/s AO Mean GR.5mmHgAVA (VMAX)2.88cm2 YANELY (VTI)3.10cm2 Mitral Valve MV E Tzlisszq068.8cm/sMV DECEL [id number] MV A Qvlydyux992.8cm/sE/A Ratio1.0 Pulmonary Vein S1 Swsiqghq44.7cm/sD2 Lmvurniu28.2cm/s LEFT VENTRICLE The left ventricle is normal size. There is normal left ventricular wall thickness. The left ventricu lar systolic function is normal and the ejection fraction is within normal range. The Ejection Fracti on is 55-60%. There is normal LV segmental wall motion. Transmitral Doppler flow pattern is Grade I-a bnormal relaxation pattern. RIGHT VENTRICLE The right ventricle is normal size. The right ventricular systolic function is normal. ATRIA The left atrium size is normal. The right atrium size is normal. The interatrial septum is intact wit h no evidence for an atrial septal defect or patent foramen ovale as noted on 2-D or Doppler imaging. AORTIC VALVE The aortic valve is calcified but opens well. Doppler and Color Flow revealed no significant aortic r egurgitation. There is no significant aortic valvular stenosis. MITRAL VALVE The mitral valve is calcified but opens well. There is no evidence of mitral valve prolapse. There is no mitral valve stenosis. Doppler and Color-flow revealed trace mitral regurgitation. TRICUSPID VALVE The tricuspid valve is normal in structure and function. Doppler and Color Flow revealed no tricuspid valve regurgitation noted. There is no tricuspid valve stenosis. PULMONIC VALVE The pulmonic valve is not well visualized. Doppler and Color Flow revealed no pulmonic valvular regur gitation. There is no pulmonic valvular stenosis. GREAT VESSELS The aortic root is normal in size. The ascending aorta is normal in size. The IVC is normal in size a nd collapses >50% with inspiration. PERICARDIAL EFFUSION There is no evidence of significant pericardial effusion. Critical Notification Critical Value: No <Conclusion> The left ventricle is normal size. The left ventricular systolic function is normal and the ejection fraction is within normal range. The Ejection Fraction is 55-60%. Doppler and Color Flow revealed no significant aortic regurgitation. There is no significant aortic valvular stenosis. Doppler and Color-flow revealed trace mitral regurgitation. Doppler and Color Flow revealed no tricuspid valve regurgitation noted. Signed by : Pepito Doll MD Electronically Approved : 04/19/2020 12:58:21
--- NOTE | 2020-04-20 10:43 | RAD ---
MR#: [id number] Date of Study: 04/18/2020 Ordering Physician: LEONA EDMONDS, Referring Physician: JANAY IRVING Tech: RT Laura (Kwan) (N) APPROVED REPORT Test Type: Pharmacological Stress Nurse/Tech: Maria Esther Pro RN Test Indications: A-fib Cardiac History: Hypertension,a-fib Medications: See Electronic Medical Record Medical History: See Electronic Medical Record Resting ECG: a-fib Resting Heart Rate: 60 bpm Resting Blood Pressure: 134/62mmHg Pretest Chest Pain: No chest pain Nurse/Tech Notes Irregular, S1,S2 and lungs diminished in the bases. Patient states she is allergic to regadenosine (h ad done previously at a cardiology office through ). Consent: The procedure was explained to the patient in lay terms. Informed consent was witnessed. [place] eout was entered into [employer]. History and Stress Test performed by RT Laura (R) (N) Stress Symptoms Dizziness POST EXERCISE Reason for Termination: Infusion complete, could not reach target HR with Dobutamine and Atropine Target HR: No Max HR: 115 bpm 75% of Maximum Predicted HR: 153 bpm Max Blood Pressure: 155/51mmHg Blood Pressure response to exercise: Normal blood pressure response during stress. Heart Rate response to exercise: WNL Chest Pain: No. Arrhythmia: No. ST Change: No. INTERPRETATION Stress EKG Conclusion: The resting EKG shows a sinus rhythm, incomplete right bundle branch and nonsp ecific ST-T wave changes. The stress EKG shows no significant changes from baseline. No EKG evidence of stress-induced ischemia. Imaging Protocol IMAGE PROTOCOL: Rest Tc-99m/stress Tc-99m 1 day Rest: Stress: Viability: Radiopharm.Tc99m VkboktbyrGl84j Sestamibi Dose10.4mCi 31mCi Duration 13min. 13min. Img Date 04/18/2020 04/18/2020 Inj-Img Qboi40aqe. 60min. Rest Admin Site:[facility] Operator:JOHN Allen ARRT (R)(N) Stress Admin Site: [facility] Operator: JOHN Allen, ARRT (R)(N) STRESS DATA End Diast. Vol.74.0mlLVEDV index BSA34.0ml End Syst. Vol.22.0mlLVESV index BSA10.0ml Myocardial Cqrp340.0gEject. Qqukemoz31.0% Stress Scores Regional WT1.00Summed WT2.00 Regional WM0.00Summed WM5.00 LV Perfusion The stress scans show mild apical thinning. The rest scans showed mild apical thinning. Nuclear imaging shows no reversible ischemia. There is an area of mild fixed apical thinning most consistent with a technical artifact. Wall Motion Left ventricular systolic function is normal with no regional wall motion abnormalities and an ejecti on fraction of greater than 70%. LV Perf. Quant 17 Seg. SSS3.00 17 Seg. SRS0.00 17 Seg. SDS3.00 Stress Defect Extent (% LAD)1.90Rest Defect Extent (% LAD)0.00Rev. Defect Extent (% LAD)1.90 Stress Defect Extent (% LCX) 12.50Rest Defect Extent (% LCX)0.00Rev. Defect Extent (% LCX)2.50 Stress Defect Extent (% RCA)0.00Rest Defect Extent (% RCA)0.00Rev. Defect Extent (% RCA)0.00 Stress Defect Extent (% JAD)5.00Rest Defect Extent (% JAD)0.00Rev. Defect Extent (% JAD)3.30 Conclusion 1. No EKG evidence of stress-induced ischemia. 2. Nuclear imaging shows no reversible ischemia. 3. Nuclear imaging shows mild fixed apical thinning most consistent with a technical artifact. 4. Normal left ventricular systolic function with no regional wall motion abnormalities and an ejecti on fraction of greater than 70%. 5. Low risk Lexiscan nuclear stress test. Signed by : Pepito Doll MD Electronically Approved : 04/20/2020 10:43:01
== END | disposition home or self-care (01) ==
LOC: ECHO 07:41
PROVIDERS: ATTEND Internal Medicine Cardiovascular Disease
DX: I35.1 Nonrheumatic aortic (valve) insufficiency (principal); I48.91 Unspecified atrial fibrillation
CPT/HCPCS: 78452; 93017; 93306; A9500; J0461; J1250

== ENCOUNTER → 2020-05-01 | Outpatient (CLI) | payer MEDICARE, OTHER ==
[~2020-05-01] MED LIST changes: -ATROPINE 1 MG/10 ML DISP.SYRINGE. IM ONE; -ATROPINE 1 MG/10 ML DISP.SYRINGE. IV ONE; -DOBUTAMINE IV ONE; -NORMAL SALINE IV ONE
== END ==
LOC: LAB 13:17
PROVIDERS: ATTEND Internal Medicine Gastroenterology
DX: Z01.812 Encounter for preprocedural laboratory examination (principal); Z20.828 Contact with and (suspected) exposure to other viral communicable diseases; K21.9 Gastro-esophageal reflux disease without esophagitis
CPT/HCPCS: U0003-CS

== ENCOUNTER → 2020-05-07 | Outpatient (CLI) | payer MEDICARE, OTHER | LOC: LAB 09:15 | PROVIDERS: ATTEND Internal Medicine Gastroenterology | DX: Z01.812 Encounter for preprocedural laboratory examination (principal); K21.9 Gastro-esophageal reflux disease without esophagitis; Z86.010 Personal history of colon polyps; Z20.828 Contact with and (suspected) exposure to other viral communicable diseases | CPT/HCPCS: U0003-CS ==

== ENCOUNTER 2020-05-21 19:02 | Emergency (ER) | payer MEDICARE, OTHER ==
[~2020-05-21] VITALS: Ht 172.7 cm; Wt 104.0 kg
[2020-05-21 19:40] VITALS: BP 142/80
[2020-05-21] MEDS ORDERED: MORPHINE SULFATE 10 MG/ML VIAL. IV ONE (22:00)
[2020-05-21] MEDS ORDERED: FAMOTIDINE 20 MG/2 ML VIAL IVP ONE (22:00)
[2020-05-21] MEDS ORDERED: METOCLOPRAMIDE HCL 10 MG/2 ML VIAL. IVP ONE (22:00)
--- NOTE | 2020-05-21 22:02 | RAD ---
Study: CT abdomen/pelvis without intravenous contrast Indication: Abdominal pain. Comparison: CT abdomen/pelvis 11/30/2015. Technique: Helical CT imaging performed of the abdomen and pelvis without the use of intravenous contrast. Sagittal and coronal reformats were obtained. One or more of the following individualized dose reduction techniques were utilized for this examination: 1. Automated exposure control 2. Adjustment of the mA and/or kV according to patient size 3. Use of iterative reconstruction technique. Findings: Inherently limited evaluation without intravenous contrast. Mild/moderate degree of constipation. Fecalization of enteric contents within the distal small bowel suggesting slowed transit. Limited ability to detect pathology arising from the mucosal surfaces of the gastrointestinal tract without oral contrast. No pathologic dilatation of the small bowel. Unremarkable stomach with the exception of a small hiatal hernia. Mild basilar volume loss. No newly seen hepatic parenchymal abnormality. Surgically absent gallbladder. Unremarkable pancreas, spleen and left adrenal gland. A benign right adrenal gland mass is no different from 2016. No dedicated follow-up is needed given stability over time. Left renal cyst, image 20 series 2, faintly present on the prior. No collecting system obstruction or stone. Unremarkable urinary bladder noting partially limited evaluation due to streak artifact from a left total hip arthroplasty. Surgically absent uterus. Unremarkable adnexa. Aortobiiliac calcific atherosclerosis. No aneurysmal dilatation. No lymphadenopathy by size criteria. No free fluid or pneumoperitoneum. No complex hernia. No acute or aggressive osseous process. Redemonstrated vertebral body fusion across T10-T11. The partially imaged left hip arthroplasty construct is intact and without loosening. Moderate right hip arthrosis with axial joint space narrowing is relatively similar in severity to the 2016 exam. Impression: 1. No acute abnormality is identified throughout the abdomen or pelvis. The only finding that could potentially explain the patient's abdominal pain is a mild to moderate degree of constipation. 2. Chronic findings, as detailed in the body the report, most of which were present in 2016 and have not significantly changed. Electronically signed by: MELISA MURPHY MD (05/21/2020 9:59 PM) [id number]
[2020-05-21 22:06] LABS: BILIRUBIN,URINE NEGATIVE (NEG); CLARITY,URINE CLEAR; COLOR,URINE YELLOW; NITRITE,URINE NEGATIVE (NEG); PH,URINE 5.5 (<5.0-8.0); PROTEIN,URINE NEGATIVE (NEG-TRACE); UROBILINOGEN,URINE 0.2 mg/dL (0.2 mg/dL)
[2020-05-21 22:10] LABS: HYALINE CASTS, URINE MODERATE /HPF
[2020-05-21 22:11] LABS: BACTERIA,URINE 0 /HPF (0-FEW); RBC,URINE 0 /HPF (0-2)
[2020-05-21 22:13] LABS: AMPHETAMINE/METHAMPHETAMINE NEG (NEG); BARBITURATES NEG (NEG); BENZODIAZEPINES NEG (NEG); CANNABINOIDS NEG (NEG); COCAINE NEG (NEG); METHADONE NEG (NEG); OPIATES NEG (NEG); PHENCYCLIDINE NEG (NEG)
[2020-05-21] MEDS ORDERED: MAGN296S68 PO (22:19)
[2020-05-21] MEDS ORDERED: POLY119P4 PO (22:19)
--- NOTE | 2020-05-21 22:19 | PHYS DOC ---
Past Medical History Past Medical History: Anxiety, Asthma, COPD, Depression, GERD, High Aarti sterol, Hypertension, Other Additional Past Medical Histor: TREMOR Past Surgical History: Cholecystectomy, Hysterectomy, Other Smoking Status: Former Smoker Alcohol Use: None Drug Use: None General Adult EDM: Chief Complaint: ABDOMINAL PAIN HPI: HPI: Patient is a 69 year old female with history of depression, hypertension, high cholesterol, who presents to the ED today complaining of generalized upper abdominal pain that has been going on for 3 weeks. Patient states sometimes she feels like she has no appetite. She states she only has 1 bowel movement every week. Denies any vomiting but states she has been nauseated. She states her last bowel movement was 4 days ago. Denies anything specifically relieving the pain but states eating food sometimes makes the pain worse. Review of Systems: Review of Systems: Constitutional: Denies fever or chills. [] Eyes: Denies change in visual acuity. [] HENT: Denies nasal congestion or sore throat. [] Respiratory: Denies cough or shortness of breath. [] Cardiovascular: Denies chest pain or edema. [] GI: Reports abdominal pain, denies nausea, vomiting, bloody stools or diarrhea. [] : Denies dysuria. [] Musculoskeletal: Denies back pain or joint pain. [] Integument: Denies rash. [] Neurologic: Denies headache, focal weakness or sensory changes. [] Psychiatric: Denies depression or anxiety. [] Heart Score: Risk Factors: Risk Factors: DM, Current or recent (<one month) smoker, HTN, HLP, family history of CAD, obesity. Risk Scores: Score 0 - 3: 2.5% MACE over next 6 weeks - Discharge Home Score 4 - 6: 20.3% MACE over next 6 weeks - Admit for Clinical Observation Score 7 - 10: 72.7% MACE over next 6 weeks - Early Invasive Strategies Current Medications: Current Medications Medications (Trade) Dose Ordered Sig/Wanda Start Time Stop Time Status Last Admin Dose Admin Famotidine (Pepcid Vial) 20 mg 1X ONCE 05/21/20 22:00 05/21/20 22:01 DC Metoclopramide HCl (Reglan Vial) 10 mg 1X ONCE 05/21/20 22:00 05/21/20 22:01 DC Morphine Sulfate (Morphine Sulfate) 5 mg 1X ONCE 05/21/20 22:00 05/21/20 22:01 DC Allergies: Allergies: Allergies Coded Allergies Type Severity Reaction Last Updated Verified regadenoson Allergy Severe LIPS SWELLED AND HIVES ON CHEST AND ARMS 10/23/16 Yes I S O L A T I O N *CONTACT* Allergy Unknown 10/23/16 Yes Physical Exam: PE: Constitutional: Well developed, well nourished, no acute distress, non-toxic appearance. [] HENT: Normocephalic, atraumatic, bilateral external ears normal, oropharynx moist, no oral exudates, nose normal. [] Eyes: PERRLA, EOMI, conjunctiva normal, no discharge. [] Neck: Normal range of motion, no tenderness, supple, no stridor. [] Cardiovascular:Heart rate regular rhythm, no murmur [] Lungs & Thorax: Bilateral breath sounds clear to auscultation [] Abdomen: Rounded distended abdomen. Bowel sounds normal, soft, no tenderness, no masses, no pulsatile masses. [] Skin: Warm, dry, no erythema, no rash. [] Back: No tenderness, no CVA tenderness. [] Extremities: No tenderness, no cyanosis, no clubbing, ROM intact, no edema. [] Neurologic: Alert and oriented X 3, normal motor function, normal sensory functi on, no focal deficits noted. [] Psychologic: Affect normal, judgement normal, mood normal. [] Current Patient Data: Labs: Laboratory Tests Test 05/21/20 21:30 Urine Collection Type Unknown Urine Color Yellow Urine Clarity Clear Urine pH 5.5 (<5.0-8.0) Urine Specific [place] 1.010 (1.000-1.030) Urine Protein Negative mg/dL (NEG-TRACE) Urine Glucose (UA) Negative mg/dL (NEG) Urine Ketones (Stick) Negative mg/dL (NEG) Urine Blood Trace (NEG) Urine Nitrite Negative (NEG) Urine Bilirubin Negative (NEG) Urine Urobilinogen Dipstick 0.2 mg/dL (0.2 mg/dL) Urine Leukocyte Esterase Trace (NEG) Urine RBC 0 /HPF (0-2) Urine WBC 5-10 /HPF (0-4) Urine Squamous Epithelial Cells Many /LPF Urine Transitional Epithelial Cells Few /LPF Urine Bacteria 0 /HPF (0-FEW) Urine Hyaline Casts Moderate /HPF Urine Mucus Slight /LPF Urine Opiates Screen Neg (NEG) Urine Methadone Screen Neg (NEG) Urine Barbiturates Neg (NEG) Urine Phencyclidine Screen Neg (NEG) Urine Amphetamine/Methamphetamine Neg (NEG) Urine Benzodiazepines Screen Neg (NEG) Urine Cocaine Screen Neg (NEG) Urine Cannabinoids Screen Neg (NEG) Urine Ethyl Alcohol Neg (NEG) Vital Signs: Vital Signs Date Time Temp Pulse Resp B/P (MAP) Pulse Ox O2 Delivery O2 Flow Rate FiO2 05/21/20 19:40 98.6 64 18 142/80 (100) 98 Room Air 98.6 EKG: EKG: [] Radiology/Procedures: Radiology/Procedures: []PROCEDURE: CT ABDOMEN PELVIS WO CONTRAST Study: CT abdomen/pelvis without intravenous contrast Indication: Abdominal pain. Comparison: CT abdomen/pelvis 11/30/2015. Technique: Helical CT imaging performed of the abdomen and pelvis without the use of intravenous contrast. Sagittal and coronal reformats were obtained. One or more of the following individualized dose reduction techniques were utilized for this examination: 1. Automated exposure control 2. Adjustment of the mA and/or kV according to patient size 3. Use of iterative reconstruction technique. Findings: Inherently limited evaluation without intravenous contrast. Mild/moderate degree of constipation. Fecalization of enteric contents within the distal small bowel suggesting slowed transit. Limited ability to detect pathology arising from the mucosal surfaces of the gastrointestinal tract without oral contrast. No pathologic dilatation of the small bowel. Unremarkable stomach with the exception of a small hiatal hernia. Mild basilar volume loss. No newly seen hepatic parenchymal abnormality. Surgically absent gallbladder. Unremarkable pancreas, spleen and left adrenal gland. A benign right adrenal gland mass is no different from 2016. No dedicated follow-up is needed given stability over time. Left renal cyst, image 20 series 2, faintly present on the prior. No collecting system obstruction or stone. Unremarkable urinary bladder noting partially limited evaluation due to streak artifact from a left total hip arthroplasty. Surgically absent uterus. Unremarkable adnexa. Aortobiiliac calcific atherosclerosis. No aneurysmal dilatation. No lymphadenopathy by size criteria. No free fluid or pneumoperitoneum. No complex hernia. No acute or aggressive osseous process. Redemonstrated vertebral body fusion across T10-T11. The partially imaged left hip arthroplasty construct is intact and without loosening. Moderate right hip arthrosis with axial joint space narrowing is relatively similar in severity to the 2016 exam. Impression: 1. No acute abnormality is identified throughout the abdomen or pelvis. The only finding that could potentially explain the patient's abdominal pain is a mild to moderate degree of constipation. 2. Chronic findings, as detailed in the body the report, most of which were present in 2016 and have not significantly changed. Electronically signed by: MELISA MURPHY MD (05/21/2020 9:59 PM) [id number] DICTATED and SIGNED BY: MELISA MURPHY MD DATE: 05/21/202158 Course & Med Decision Making: Course & Med Decision Making Pertinent Labs and Imaging studies reviewed. (See chart for details) This is a 69-year-old female patient presented to the ED today complaining of upper abdominal pain, CT scan of the abdomen and pelvic noted for moderate constipation. Educated this patient on managing and preventing constipation. Discharge to home with medicines to help manage constipation. Dragon Disclaimer: Dragon Disclaimer: This electronic medical record was generated, in whole or in part, using a voice recognition dictation system. Departure Departure Impression: Primary Impression: Constipation Qualified Codes: K59.00 - Constipation, unspecified Disposition: 01 DC HOME SELF CARE/HOMELESS Condition: STABLE Referrals: MAXIM VILLALPANDO MD (PCP) follow up with your doctor in 1 week Patient Instructions: Constipation, Adult Additional Instructions: Your CAT scan was noted for constipation. Please take the prescribed medications as ordered, try to exercise, try to increase your dietary fiber intake as well as your water intake. Follow-up with your doctor in 1 to 2 weeks. Scripts Polyethylene Glycol 3350 (MIRALAX) 119 Gm Powder 17 GM PO DAILY for constipation, #255 GM 0 Refills dissolve in water Prov: TED CHOWDARY APRN 05/21/20 Magnesium Citrate (MAGNESIUM CITRATE) 296 Ml Solution 296 ML PO ONCE, #296 ML Prov: TED CHOWDARY WOOD TANK ERECTOR 05/21/20 TED CHOWDARY APRN May 21, 2020 22:19
[2020-05-21] MEDS ORDERED: BISACODYL 5 MG TABLET.DR. PO ONE (23:00)
[2020-05-21] MEDS ORDERED: MAGNESIUM CITRATE 296 ML SOLUTION. PO ONE (23:00)
[2020-05-21] MEDS ORDERED: MORPHINE SULFATE 10 MG/ML VIAL. IM ONE (23:00)
[2020-05-21] MEDS ORDERED: ONDANSETRON ODT 4 MG TAB.RAPDIS. PO ONE (23:00)
== END 2020-05-21 22:48 | disposition home or self-care (01) ==
LOC: ER 19:02
DX: K59.00 Constipation, unspecified (principal); R10.84 Generalized abdominal pain; F41.9 Anxiety disorder, unspecified; J44.9 Chronic obstructive pulmonary disease, unspecified; F32.9 Major depressive disorder, single episode, unspecified; K21.9 Gastro-esophageal reflux disease without esophagitis; E78.00 Pure hypercholesterolemia, unspecified; I10 Essential (primary) hypertension; Z90.710 Acquired absence of both cervix and uterus; Z90.49 Acquired absence of other specified parts of digestive tract; Z87.891 Personal history of nicotine dependence; Z88.8 Allergy status to other drugs, medicaments and biological substances; Z79.899 Other long term (current) drug therapy
CPT/HCPCS: 74176; 80307; 81001; 87077; 87086; 87186; 96372; 99284; J2270

== ENCOUNTER → 2020-09-19 | Outpatient (CLI) | payer MEDICARE, OTHER ==
[~2020-09-19] MED LIST changes: +ATOR20TA58 PO; +DILT120C99 PO; -HYDR50TA6 PO; +HYDR50TA9 PO; +MAGN296S68 PO; +MELA5TAB20 PO; +MV-M1TAB7 PO; +POLY119P4 PO; +RIVA20TA2 PO; +SERT50TA PO; +TIOT18CA IH
== END ==
LOC: LAB 11:00
PROVIDERS: ATTEND Internal Medicine Cardiovascular Disease
DX: Z01.812 Encounter for preprocedural laboratory examination (principal); J44.9 Chronic obstructive pulmonary disease, unspecified; I48.0 Paroxysmal atrial fibrillation; I49.5 Sick sinus syndrome; Z20.822 Contact with and (suspected) exposure to COVID-19
CPT/HCPCS: U0003

== ENCOUNTER 2020-09-21 06:54 | Observation (INO) | payer MEDICARE, OTHER ==
[~2020-09-21] VITALS: Ht 172.7 cm; Wt 100.8 kg
[~2020-09-21 06:54] MED LIST changes: -ATOR20TA58 PO; -DILT120C99 PO; -MELA5TAB20 PO; -MV-M1TAB7 PO; -RIVA20TA2 PO; -SERT50TA PO; -TIOT18CA IH
[2020-09-21] MEDS ORDERED: BACITRACIN 50,000 UNIT in IV NORMAL SALINE 250ML 250 ML IRR ONE (07:15)
[2020-09-21 07:39] LABS: HEMATOCRIT 32.7 % (36.0-47.0); HEMOGLOBIN 10.7 g/dL (12.0-15.5); RED BLOOD COUNT 3.88 x10^6/uL (3.50-5.40); RED CELL DISTRIBUTION WIDTH 15.1 % (11.5-14.5); WHITE BLOOD COUNT 5.1 x10^3/uL (4.0-11.0)
[2020-09-21] MEDS ORDERED: IODIXANOL 320 MG/ML 100 ML VIAL. ONE (07:47)
[2020-09-21] MEDS ORDERED: LIDOCAINE 2%/EPI 1:100,000 20 ML VIAL. ONE (07:47)
[2020-09-21 07:49] LABS: CALCIUM 9.5 mg/dL (8.5-10.1); CREATININE 1.2 mg/dL (0.6-1.0); GFR 44.7
[2020-09-21 07:51] LABS: POTASSIUM 2.9 mmol/L (3.5-5.1)
[2020-09-21 07:52] LABS: PROTHROMBIN TIME PATIENT 16.2 SEC (11.7-14.0)
--- NOTE | 2020-09-21 07:57 | NUR ---
Patient's K 2.9. Notified Dr. Stark at 0752. Order received to give 40 MEQ K PO and 10 MEQ K IV x1 now. Will not delay case. See labs, orders.
[2020-09-21 08:04] VITALS: BP 148/82
[2020-09-21] MEDS ORDERED: MIDAZOLAM HCL/PF 2 MG/2 ML VIAL. ONE ×2 (08:28→09:08)
[2020-09-21] MEDS ORDERED: fentaNYL PF VIAL 100 MCG/2 ML VIAL ONE ×3 (08:28→09:30)
[2020-09-21] MEDS ORDERED: POTASSIUM CHLORIDE 10MEQ 100 ML IV SCH (08:30)
[2020-09-21] MEDS ORDERED: POTASSIUM CHLORIDE 20 MEQ TABLET.ER. PO ONE ×2 (08:30→15:45)
[2020-09-21] MEDS ORDERED: RIVA20TA2 PO (08:46)
[2020-09-21] MEDS ORDERED: SERT50TA PO (08:46)
[2020-09-21] MEDS ORDERED: DILT120C99 PO (08:46)
[2020-09-21] MEDS ORDERED: TIOT18CA IH (08:46)
[2020-09-21] MEDS ORDERED: MV-M1TAB7 PO (08:46)
[2020-09-21] MEDS ORDERED: ATOR20TA58 PO (08:46)
[2020-09-21] MEDS ORDERED: MELA5TAB20 PO (08:46)
[2020-09-21] MEDS ORDERED: ALPR0.25 PO (08:46)
[2020-09-21] MEDS ORDERED: ONDANSETRON PF 4 MG/2 ML VIAL. ONE (08:51)
--- NOTE | 2020-09-21 08:51 | PDOC ---
MODERATE SEDATION ASSESSMENT RISKS/ALTERNATIVES Risks/Alternatives Risks and alternatives of this type of sedation and procedure discussed with: RISK/ALTERNATIVES: Patient H & P ON CHART H & P H & P on chart and reviewed for co-morbid conditions and appropriate labs. H&P ON CHART: Yes STATUS PREG STATUS ASSESSED: N/A MEDS/ALLERGIES REVIEWED Meds/Allergies Reviewed Medications and Allergies including time and route of recently administered narcotics and sedatives. MEDS/ALLERGIES REVIEWED: Yes ASA RATING ASA RATING: III AIRWAY ASSESSMENT Airway Assessment Airway patency, oral function limitations, presence of caps, crowns, dentures, partials, and ability to extend neck assessed. AIRWAY ASSESSMENT: Yes MALLAMPATI SCORE MALLAMPATI SCORE: II PRE-SEDATION ASSESSMENT PRE-SEDATION ASSESSMENT: Yes LEONA EDMONDS MD Sep 21, 2020 08:51
[2020-09-21] MEDS ORDERED: diphenhydrAMINE 50 MG/ML VIAL ONE (09:11)
[2020-09-21] MEDS ORDERED: IODIXANOL 320 MG/ML 100 ML VIAL. IART ONE (09:45)
[2020-09-21] MEDS ORDERED: LIDOCAINE 2% Multi-Dose 20 ML VIAL. IJ ONE (09:45)
[2020-09-21] MEDS ORDERED: fentaNYL PF VIAL 100 MCG/2 ML VIAL IV ONE (09:45)
[2020-09-21] MEDS ORDERED: LIDOCAINE 2%/EPI 1:100,000 20 ML VIAL. IJ ONE (09:45)
[2020-09-21] MEDS ORDERED: ONDANSETRON PF 4 MG/2 ML VIAL. IVP ONE (09:45)
[2020-09-21] MEDS ORDERED: MIDAZOLAM HCL/PF 2 MG/2 ML VIAL. IV ONE (09:45)
[2020-09-21] MEDS ORDERED: diphenhydrAMINE 50 MG/ML VIAL IVP ONE (09:45)
[2020-09-21] MEDS ORDERED: CONTRAST GIVEN. MC PRN (10:00)
[2020-09-21 10:05] VITALS: BP 149/53
--- NOTE | 2020-09-21 10:25 | CARD ---
MR#: [id number] Date of Study: 09/21/2020 Ordering Physician: LEONA STARK, Referring Physician: LEONA STARK, Tech: APPROVED REPORT PROCEDURES 1. Implantation of Biotronik dual-chamber permanent pacemaker 2. Right heart catheterization Sedation Time: 79 Minutes Dose: 11.23 Gycm2 Fluoro Time: 5.7 Minutes INDICATIONS Symptomatic tachycardia-bradycardia/sick sinus syndrome and refractory dyspnea on minimal exertion IV conscious sedation was used throughout procedure with appropriate monitoring and was performed in the presence of a registered nurse who was an independent trained observer other than the physician p erforming the procedure. Specimen(s) Removed: No Estimated Blood loss: 20 cc's. PROCEDURAL DETAILS After explaining the risk, benefits and alternative options, informed consent was obtained from patie nt. Patient was brought to the cardiac Clinical Nutritionist and her left chest and shoulder were prepped and jose ped in the usual fashion. 30 cc of 2% lidocaine was infiltrated into the skin and subcutaneous tissu es for local anesthesia. An incision was made over the left infraclavicular fossa and using blunt di ssection and cautery, a pocket was created. Venous access was obtained in the left subclavian vein a nd 8 [place]ish sheath inserted. A 7.5 [place] catheter was then advanced under fluoroscopic gu idance and intracardiac pressures and oxygen saturations were measured. Cardiac output was determine d by Sukhwinder method. RIGHT HEART CATHETERIZATION FINDINGS a. Intracardiac pressures: Mean right atrial pressure 5 mmHg, right ventricular pressure 44/0 mmHg, pulmonary artery 38/15 mmHg with mean PA pressure 25 mmHg, mean pulmonary capillary wedge pressure 13 mmHg consistent with mild pulmonary hypertension. b. Oxygen saturations: Right atrium 76.8%, pulmonary artery 75.6%. No evidence of intracardiac shun t. c. Cardiac output by Sukhwinder method 6.6 L/min. Subsequently, a Biotronik bipolar active fixation right ventricular lead model Solia, serial #[id number] was advanced under fluoroscopic guidance and the tip was positioned in the right ventricular apex . Following this, a Biotronik bipolar active fixation right atrial lead model Solia, serial #[id number] was positioned in the right atrial appendage under fluoroscopic guidance. The leads were secured into place and were attached to a OmnyPayronik dual-chamber permanent pacemaker generator, model Edora 8 DR-T, serial #[id number]. This was placed in the pocket that was subsequently closed in 3 layers. H emostasis was secured. The right ventricular lead showed a sensing amplitude of 10 mV, impedance of 690 ohms and a threshold of 0.4 V. The right atrial lead showed a sensing amplitude of 3.0 mV, impedance of 810 ohms and a t hreshold of 0.7 V. Patient tolerated the procedure well. There were no immediate complications. CONCLUSION Successful implantation of Biotronik dual-chamber permanent pacemaker for symptomatic tachycardia-bra dycardia/sick sinus syndrome. Mild pulmonary hypertension on right heart catheterization. No evidence of intracardiac shunt. Signed by : Leona Stark, Electronically Approved : 09/21/2020 10:25:10
[2020-09-21 11:00] VITALS: BP 121/61
--- NOTE | 2020-09-21 11:43 | RAD ---
XR CHEST 1V History: Reason: Post pacemaker / Spl. Instructions: / History: Comparison: Chest x-ray 11/02/2017 Technique: Portable AP chest radiograph. Findings: Tubes/lines: New left chest dual-chamber pacemaker with lead tips projecting at the right atrium and right ventricle. Lungs: Mild right greater than left basilar atelectasis. Pleural Spaces: No effusion or pneumothorax. Cardiac Silhouette: Prominent cardiac silhouette with calcified aorta Pulmonary Vasculature: Within normal limits. Osseous Structures and Other: Degenerative changes of the spine. Surgical clips project over the righ t upper lung. Impression: 1. New left chest dual-chamber pacemaker. No pneumothorax. Electronically signed by: Skyler Fernandez MD (09/21/2020 11:41 AM) [facility]
[2020-09-21] MEDS: oxyCODONE/APAP 5/325 1 TAB TABLET PO PRN ×2 (14:30→20:30)
[2020-09-21 15:00] VITALS: BP 112/43
[2020-09-21 19:47] VITALS: BP 134/53
[2020-09-21 22:20] VITALS: BP 138/51
[2020-09-22 03:49] VITALS: BP 133/51
[2020-09-22 07:30] VITALS: BP 139/43
[2020-09-22] MEDS ORDERED: PANTOPRAZOLE 40 MG TABLET.DR. PO SCH (07:30)
[2020-09-22 07:32] LABS: MAGNESIUM 2.1 mg/dL (1.8-2.4); POTASSIUM 3.9 mmol/L (3.5-5.1)
[2020-09-22] MEDS ORDERED: SERTRALINE 50 MG TABLET. PO SCH (09:00)
[2020-09-22] MEDS ORDERED: hydroCHLOROthiazide 25 MG TABLET PO SCH (09:00)
[2020-09-22] MEDS ORDERED: FLUCONAZOLE 100 MG TABLET. PO ONE (10:00)
[2020-09-22] MEDS ORDERED: PROPRANOLOL 10 MG TABLET. PO SCH (10:00)
[2020-09-22] MEDS ORDERED: PROP10TA PO (10:02)
--- NOTE | 2020-09-22 10:03 | PDOC3 ---
Discharge Summary Visit Information Date of Admission: Sep 21, 2020 Date of Discharge: Sep 22, 2020 Admitting Diagnosis: Sick sinus syndrome Final Diagnosis Sick sinus syndrome Tachy-radha syndrome Paroxysmal atrial fibrillation HTN HLP Brief Hospital Course Allergies Allergies Coded Allergies Type Severity Reaction Last Updated Verified diltiazem Allergy Severe severe bradycardia w/syncope 09/21/20 Yes regadenoson Allergy Severe LIPS SWELLED AND HIVES ON CHEST AND ARMS 10/23/16 Yes citalopram Allergy Intermediate hives 09/21/20 Yes Latex, Natural Rubber Allergy Mild hives 09/21/20 Yes I S O L A T I O N *CONTACT* Allergy Unknown 10/23/16 Yes Vital Signs Vital Signs Date Time Temp Pulse Resp B/P (MAP) Pulse Ox O2 Delivery O2 Flow Rate FiO2 09/22/20 08:20 71 139/43 09/22/20 08:00 Room Air 09/22/20 07:30 98.7 16 96 98.7 09/21/20 14:30 2.0 Lab Results Laboratory Tests Test 09/21/20 07:30 09/21/20 12:10 09/22/20 06:49 White Blood Count 5.1 x10^3/uL (4.0-11.0) Red Blood Count 3.88 x10^6/uL (3.50-5.40) Hemoglobin 10.7 g/dL (12.0-15.5) Hematocrit 32.7 % (36.0-47.0) Mean Corpuscular Volume 84 fL (79-100) Mean Corpuscular Hemoglobin 28 pg (25-35) Mean Corpuscular Hemoglobin Concent 33 g/dL (31-37) Red Cell Distribution Width 15.1 % (11.5-14.5) Platelet Count 292 x10^3/uL (140-400) Prothrombin Time 16.2 SEC (11.7-14.0) Prothromb Time International Ratio 1.3 (0.8-1.1) Sodium Level 143 mmol/L (136-145) Potassium Level 2.9 mmol/L (3.5-5.1) 3.3 mmol/L (3.5-5.1) 3.9 mmol/L (3.5-5.1) Chloride Level 104 mmol/L (98-107) Carbon Dioxide Level 25 mmol/L (21-32) Anion Gap 14 (6-14) Blood Urea Nitrogen 19 mg/dL (7-20) Creatinine 1.2 mg/dL (0.6-1.0) Estimated GFR (Cockcroft-Gault) 44.7 Glucose Level 117 mg/dL (70-99) Calcium Level 9.5 mg/dL (8.5-10.1) Magnesium Level 2.1 mg/dL (1.8-2.4) Laboratory Tests Test 09/21/20 12:10 09/22/20 06:49 Potassium Level 3.3 mmol/L (3.5-5.1) 3.9 mmol/L (3.5-5.1) Magnesium Level 2.1 mg/dL (1.8-2.4) Brief Hospital Course Ms. Castro is a 70 old female with history of refractory dyspnea on exertion and symptomatic tachy-radha/sick sinus syndrome underwent successful permanent pacemaker implantation. Right heart cath did not show any significant pulm HTN and her AGUILA was thought to be secondary to COPD. CXR did not show any pneumothorax and device check prior to DC showed normal function. She will follow up with our office in one month. Discharge Information Condition at Discharge: Stable Follow Up: Months (1) Disposition/Orders: D/C to Home Scheduled Albuterol Sulfate (Proair Hfa Inhaler) 8.5 Gm Hfa.aer.ad, 2 PUFF IH QID for ASTHMA, (Reported) LAST DOSE GIVEN: DATE: TIME: NEXT DOSE DUE: DATE: TIME: Entered as Reported by: SHALINI MORSE on 08/16/14 0636 Last Action: Reviewed on 09/21/20845 by CORI CHRISTIANSON Alprazolam (Xanax) 0.25 Mg Tablet, 1 TAB PO DAILY for rx, #30 (Reported) Entered as Reported by: CORI CHRISTIANSON on 09/21/20845 Last Action: New Order on 09/21/20845 by CORI CHRISTIANSON Atorvastatin Calcium (Atorvastatin Calcium) 20 Mg Tablet, 1 TAB PO DAILY for rx, #30 Ref 5 (Reported) Entered as Reported by: CORI CHRISTIANSON on 09/21/20845 Last Action: Continued on 09/21/201048 by Barrett Cerrato Diltiazem Hcl (Diltiazem 24HR Cd) 120 Mg Cap.er.24h, 1 CAP PO DAILY for rx for 30 Days, #30 Ref 0 (Reported) Entered as Reported by: CORI CHRISTIANSON on 09/21/20845 Last Action: Continued on 09/21/201048 by Barrett Cerrato Fluticasone/Salmeterol (Advair 100-50 Diskus) 1 Each Disk.w.dev, 1 PUFF IH BID, #1 Ref 5 (Reported) Entered as Reported by: MURRAY BERNAL on 10/23/161226 Last Action: Reviewed on 09/21/20845 by CORI CHRISTIANSON Hydrochlorothiazide (Hydrochlorothiazide Tablet ) 25 Mg Tablet, 25 MG PO DAILY for rx, Ref 0 (Reported) Entered as Reported by: CORBIN DURBIN on 05/10/151657 Last Action: Continued on 09/21/201048 by Barrett Cerrato Melatonin (Melatonin) 5 Mg Tab.rapdis, 1 TAB PO QHS for sleep for 30 Days, #30 Ref 0 (Reported) Entered as Reported by: CORI CHRISTIANSON on 09/21/20845 Last Action: New Order on 09/21/20845 by CORI CHRISTIANSON Omeprazole (Omeprazole) 40 Mg Capsule.dr, 1 CAP PO DAILY, #30 Ref 3 (Reported) Entered as Reported by: MURRAY BERNAL on 10/23/161226 Last Action: Converted on 09/21/201048 by Barrett Cerrato Propranolol Hcl (Propranolol Hcl) 10 Mg Tablet, 20 MG PO BID for tremor for 30 Days, #120 Ref 2 Prescribed by: LEONA EDMONDS on 09/22/201001 Rivaroxaban (Xarelto) 20 Mg Tablet, 1 TAB PO DAILY for rx for 30 Days, #30 Ref 0 (Reported) with food Entered as Reported by: CORI CHRISTIANSON on 09/21/20845 Last Action: New Order on 09/21/20845 by CORI CHRISTIANSON Sertraline Hcl (Zoloft) 50 Mg Tablet, 1 TAB PO DAILY for rx, #30 Ref 2 (Reported) Entered as Reported by: CORI CHRISTIANSON on 09/21/20845 Last Action: Continued on 09/21/201048 by Barrett Cerrato Tiotropium [place] (Spiriva) 18 Mcg Cap.w.dev, 1 CAP IH DAILY for rx, #30 Ref 3 (Reported) Entered as Reported by: CORI CHRISTIANSON on 09/21/20845 Last Action: New Order on 09/21/20845 by CORI CHRISTIANSON Scheduled PRN Alprazolam (Xanax) 0.25 Mg Tablet, 0.25 MG PO PRN Q6HRS PRN for ANXIETY / AGITATION, Ref 0 (Reported) LAST DOSE GIVEN: DATE: 05/30 TIME: 9 PM NEXT DOSE DUE: ANYTIME NEEDED FOR ANXIETY OR PAIN EVERY 6 HOURS. Entered as Reported by: SHALINI MORSE on 08/16/14635 Last Action: Reviewed on 09/21/20845 by CORI CHRISTIANSON Mv-Mn/Iron/Fa/Herbal Cmplx#190 (Vitamin D3 Complete Caplet) 1 Each Tablet, 5,000 UNITS PO DAILY PRN for rx, (Reported) Entered as Reported by: CORI CHRISTIANSON on 09/21/20845 Last Action: New Order on 09/21/20845 by CORI CHRISTIANSON Ondansetron Hcl (Zofran) 4 Mg Tablet, 4 MG PO BID PRN for NAUSEA/VOMITING, (Reported) Entered as Reported by: CORBIN DURBIN on 05/10/15 170 Last Action: Edited on 09/21/20845 by CORI CHRISTIANSON Justicifation of Admission Dx: Justifications for Admission: Justification of Admission Dx: Yes LEONA EDMONDS MD Sep 22, 2020 10:03
[2020-09-22 10:12] VITALS: BP 139/43
--- NOTE | 2020-09-22 10:13 | RAD ---
XR CHEST 2V INDICATION: 1 day post pacemaker implantation COMPARISON STUDY: 09/21/2020. FINDINGS: Stable left pectoral pacemaker. Lungs: Normal lung volume. No pulmonary mass or consolidation. Stable metallic clips overlying the ri ght upper lung zone. The tracheobronchial tree and hilar structures are normal. Pleura: No pleural effusion or pneumothorax. Heart and Mediastinum: The cardiomediastinal silhouette is normal. The great vessels of the thorax ar e normal. IMPRESSION: No acute cardiopulmonary process. No pneumothorax. Electronically signed by: Audi Restrepo MD (09/22/2020 10:11 AM) [id number]
[2020-09-22] MEDS: oxyCODONE/APAP 5/325 1 TAB TABLET PO PRN (10:16)
--- NOTE | 2020-09-22 12:34 | NUR ---
Discharge Note: LESTER QUIÑONES [place] Discharge instructions and discharge home medications reviewed with Patient and a copy given. All questions have been answered and understanding verbalized. The following instructions and handouts were given: propranolol, post pacemaker Patient discharged to home with self care via wheelchair.
[2020-09-22] MEDS ORDERED: ATORVASTATIN CALCIUM 20 MG TABLET PO SCH (21:00)
== END 2020-09-22 12:30 | disposition home or self-care (01) ==
LOC: CCL 06:54 → INTOOBSV 07:30 → 2 NORTH 07:30
PROVIDERS: ADMIT Internal Medicine Cardiovascular Disease; ATTEND Internal Medicine Cardiovascular Disease
DX: I49.5 Sick sinus syndrome (principal); I48.0 Paroxysmal atrial fibrillation; I10 Essential (primary) hypertension; E78.5 Hyperlipidemia, unspecified
CPT/HCPCS: 33208; 36415; 71045; 71046; 80048; 83735; 84132; 85027; 85610; 93451; 96365; 96366; 99152; 99153; C1769; C1773; C1785; G0378; G0379; J0690; J1200; J1644; J2250; J2405; J3010; J3480; J3490; J7050; J7030

== ENCOUNTER 2020-10-11 07:33 | Emergency (ER) | payer MEDICARE, OTHER ==
[~2020-10-11] VITALS: Ht 170.2 cm; Wt 100.0 kg
[~2020-10-11 07:33] MED LIST changes: +ATOR20TA58 PO; +DILT120C99 PO; +MELA5TAB20 PO; +MV-M1TAB7 PO; +PROP10TA PO; +RIVA20TA2 PO; +SERT50TA PO; +TIOT18CA IH
[2020-10-11 07:37] VITALS: BP 157/70
--- NOTE | 2020-10-11 07:50 | ED.ADGEN ---
Past Medical History Past Medical History: Anxiety, Asthma, COPD, Depression, GERD, High Aarti sterol, Hypertension, Other Additional Past Medical Histor: TREMOR Past Surgical History: Cholecystectomy, Hysterectomy, Other Smoking Status: Former Smoker Alcohol Use: None Drug Use: None General Adult EDM: Chief Complaint: MECHANICAL FALL HPI: HPI: Patient is a 70-year-old female who arrives by private vehicle to the emergency department complaining of multiple injuries sustained after a fall yesterday evening. Patient was closing her garage door when she reentered her house and experienced her legs giving out upon her. In falling the patient sustained multiple injuries. Specifically she injured her left shoulder as well as right knee, right ankle and right foot. Patient also reports the pain in her toes of her left foot stating that they were also impacted by her fall. The patient states despite falling she did not hit her head. She further states she did not have any prodromal symptoms prior to falling such as feeling lightheaded and sta yolanda she never lost consciousness. Patient states however today she is very sore from her fall with the majority of her pain in her left shoulder as well as right lower extremity. She denies any history of chest pain before or since the fall. She further denies any neurological change to her baseline. She is awake, alert and nontoxic-appearing. Review of Systems: Review of Systems: Constitutional: Denies fever or chills. [] Eyes: Denies change in visual acuity. [] HENT: Denies nasal congestion or sore throat. [] Respiratory: Denies cough or shortness of breath. [] Cardiovascular: Denies chest pain or edema. [] GI: Denies abdominal pain, nausea, vomiting, bloody stools or diarrhea. [] : Denies dysuria. [] Musculoskeletal: Denies back pain or joint pain. [] Integument: Denies rash. [] Neurologic: Denies headache, focal weakness or sensory changes. [] Endocrine: Denies polyuria or polydipsia. [] Lymphatic: Denies swollen glands. [] Psychiatric: Denies depression or anxiety. [] Family History: Family History: Noncontributory Allergies: Allergies: Allergies Coded Allergies Type Severity Reaction Last Updated Verified diltiazem Allergy Severe severe bradycardia w/syncope 09/21/20 Yes regadenoson Allergy Severe LIPS SWELLED AND HIVES ON CHEST AND ARMS 10/23/16 Yes citalopram Allergy Intermediate hives 09/21/20 Yes Latex, Natural Rubber Allergy Mild hives 09/21/20 Yes I S O L A T I O N *CONTACT* Allergy Unknown 10/23/16 Yes Physical Exam: PE: Constitutional: Well developed, well nourished, no acute distress, non-toxic appearance. [] HENT: Normocephalic, atraumatic, bilateral external ears normal, oropharynx moist, no oral exudates, nose normal. [] Eyes: PERRLA, EOMI, conjunctiva normal, no discharge. [] Neck: Normal range of motion, no tenderness, supple, no stridor. [] Cardiovascular:Heart rate regular rhythm, no murmur [] Lungs & Thorax: Bilateral breath sounds clear to auscultation [] Abdomen: Bowel sounds normal, soft, no tenderness, no masses, no pulsatile masses. [] Skin: Warm, dry, no erythema, no rash. [] Back: No tenderness, no CVA tenderness. [] Extremities: Patient is contusion at the left shoulder. There is tenderness palpation at this site as well. Additionally the patient has minimal ecchymosis and swelling of the right foot and ankle present. No cyanosis, no clubbing, ROM intact, no edema. [] Neurologic: Alert and oriented X 3, normal motor function, normal sensory function, no focal deficits noted. [] Psychologic: Affect normal, judgement normal, mood normal. [] Current Patient Data: Vital Signs: Vital Signs Date Time Temp Pulse Resp B/P (MAP) Pulse Ox O2 Delivery O2 Flow Rate FiO2 10/11/20 07:37 98.0 69 18 157/70 (99) 98 Room Air 98.0 EKG: EKG: [] Heart Score: C/O Chest Pain: No Risk Factors: Risk Factors: DM, Current or recent (<one month) smoker, HTN, HLP, family hi story of CAD, obesity. Risk Scores: Score 0 - 3: 2.5% MACE over next 6 weeks - Discharge Home Score 4 - 6: 20.3% MACE over next 6 weeks - Admit for Clinical Observation Score 7 - 10: 72.7% MACE over next 6 weeks - Early Invasive Strategies Radiology/Procedures: Radiology/Procedures: [] Impression: [facility] [address] [place] [address] IMAGING REPORT Signed PATIENT: LESTER QUIÑONES ACCOUNT: [id number] : 1950 LOCATION: ER AGE: 70 SEX: F EXAM STATUS: REG ER ORD. PHYSICIAN: BRANDY THOMPSON DO REASON: trauma, PT FELL DOWN 1 STEP YESTERDAY, HIP PAIN PROCEDURE: PELVIS PROCEDURE: XR SHOULDER_LEFT 2+ VIEWS STUDY DATE: 10/11/2020 CLINICAL INDICATION / HISTORY: Reason: trauma, PT FELL DOWN 1 STEP YESTERDAY, RANDALL FOOT PAIN / Spl. Instructions: / History: . TECHNIQUE: AP internal and external rotation views with a Y- view were obtained of the left shoulder. COMPARISON: Left shoulder x-rays 10/14/2017 FINDINGS: No fracture, dislocation or bone destruction is identified. There are no degenerative changes at the left AC joint. Minimal osteophytic spurring on th e humeral head is however present, compatible with mild glenohumeral degenerative change. No calcifications are seen in relation to the rotator cuff insertion. Left chest dual-chamber pacemaker newly noted. IMPRESSION: No acute osseous abnormality in the left shoulder with mild glenohumeral degenerative change redemonstrated. PROCEDURE: XR PELVIS 1-2V STUDY DATE: 10/11/2020 CLINICAL INDICATION / HISTORY: Reason: trauma, PT FELL DOWN 1 STEP YESTERDAY, RANDALL FOOT PAIN / Spl. Instructions: / History: . TECHNIQUE:Single AP view of the pelvis was obtained COMPARISON: Abdomen pelvis CT of 05/21/2020 FINDINGS: The osseous structures are normally mineralized. There is normal bony alignment present with the femoral heads well-seated within the acetabuli. Left total hip arthroplasty is redemonstrated. There is no evidence of acute fracture or dislocation identified. Moderately advanced joints space narrowing and osteophytic spurring on the femoral head on the right is present, consistent with hip degenerative change. The overlying soft tissues are grossly unremarkable. IMPRESSION: No evidence of pelvic ring or hip fracture or dislocation PROCEDURE: XR KNEE 3 VIEWS STUDY DATE: 10/11/2020 CLINICAL INDICATION / HISTORY: Reason: trauma, PT FELL DOWN 1 STEP YESTERDAY, RANDALL FOOT PAIN / Spl. Instructions: / History: . TECHNIQUE: AP, lateral, and tunnel views of the right and left knees. COMPARISON: None FINDINGS: The osseous structures are intact. The articular surfaces are smooth. The joint space is maintained. No intra-articular loose bodies. The alignment is within normal limits. The soft tissues are unremarkable. No obvious joint effusion. No radio-opaque foreign bodies are identified. IMPRESSION: No fracture or dislocation is identified in either the right or left knee. PROCEDURE: XR EXAM OF ANKLE_RIGHT 3VIEWS STUDY DATE: 10/11/2020 CLINICAL INDICATION / HISTORY: Reason: trauma, PT FELL DOWN 1 STEP YESTERDAY, RANDALL FOOT PAIN / Spl. Instructions: / History: . TECHNIQUE: Right ankle 3 views. COMPARISON: None FINDINGS: The ankle mortise is approximated, and the talar dome is unremarkable. The joint space widths are maintained. No fracture or dislocation is identified. No soft tissue swelling is appreciated. Small calcaneal spur is present. IMPRESSION: No acute osseous abnormality in the right ankle. PROCEDURE: XR FEET 3 VIEWS STUDY DATE: 10/11/2020 CLINICAL INDICATION / HISTORY: Reason: trauma, PT FELL DOWN 1 STEP YESTERDAY, RANDALL FOOT PAIN / Spl. Instructions: / History: . TECHNIQUE: AP, lateral and oblique views of the right and left foot. COMPARISON: None FINDINGS: No fracture or dislocation is identified. The bone density is normal. The joint space widths are maintained, and there are no erosions to suggest an inflammatory arthropathy. No soft tissue abnormality is seen. IMPRESSION: No acute osseous abnormality in either foot is demonstrated. Electronically signed by: Fito Rutledge MD (10/11/2020 8:29 AM) [id number] DICTATED and SIGNED BY: FITO RUTLEDGE MD DATE: 10/11/20 [id number] [facility] [address] [place] [address] IMAGING REPORT Signed PATIENT: LESTER QUIÑONES ACCOUNT: [id number] : 1950 LOCATION: ER AGE: 70 SEX: F EXAM STATUS: PRE ER ORD. PHYSICIAN: BRANDY THOMPSON DO REASON: trauma PROCEDURE: CT HEAD WO CONTRAST EXAM: CT Head without IV contrast INDICATION: Reason: trauma / Spl. Instructions: / History: TECHNIQUE: Multi-detector row CT images were obtained of the head without the use of IV contrast. All CT scans performed at this facility utilize dose optimization techniques as appropriate to the exam, including the following: Automated exposure control and adjustment of the mA and/or KV according to patient size (this includes techniques or standardized protocols for targeted exams where dose is indication/reason for exam). COMPARISON: None FINDINGS: BRAIN PARENCHYMA: No evidence of acute intraparenchymal hemorrhage or infarct. Lucency in the left frontal subcortical white matter is compatible with chronic lacunar infarct. VENTRICLES & EXTRA-AXIAL SPACES: Ventricles are within normal limits. Basilar cisterns are patent. No pathologic extra-axial fluid collection or mass. ORBITS: Orbital contents are unremarkable. SINUSES: Visualized paranasal sinuses and mastoid air cells are clear. OSSEOUS & SOFT TISSUES: Calvarium and skull base are intact. A 1.1 cm groundglass density in the midline frontal bone above the frontal sinuses is present, suggestive of an intraosseous hemangioma. IMPRESSION: No acute intracranial pathology. Electronically signed by: Fito Rutledge MD (10/11/2020 8:17 AM) [id number] DICTATED and SIGNED BY: FITO RUTLEDGE MD DATE: 10/11/20 [id number] 0 Course & Med Decision Making: Course & Med Decision Making Pertinent Labs and Imaging studies reviewed. (See chart for details) [] Dragon Disclaimer: Dragon Disclaimer: This electronic medical record was generated, in whole or in part, using a voice recognition dictation system. Departure Departure Impression: Primary Impression: Accidental fall Additional Impressions: Contusion of left shoulder Contusion of right ankle, initial encounter Contusion of right foot Contusion of right knee, initial encounter Contusion of left knee, initial encounter Disposition: 01 DC HOME SELF CARE/HOMELESS Condition: GOOD Referrals: MAXIM VILLALPANDO MD (PCP) Patient Instructions: Contusion, Fall Prevention and Home Safety Problem Qualifiers BRANDY THOMPSON DO Oct 11, 2020 07:50
--- NOTE | 2020-10-11 08:20 | RAD ---
EXAM: CT Head without IV contrast INDICATION: Reason: trauma / Spl. Instructions: / History: TECHNIQUE: Multi-detector row CT images were obtained of the head without the use of IV contrast. All CT scans performed at this facility utilize dose optimization techniques as appropriate to the exam, including the following: Automated exposure control and adjustment of the mA and/or KV according to patient size (this includes techniques or standardized protocols for targeted exams where dose is ind ication/reason for exam). COMPARISON: None FINDINGS: BRAIN PARENCHYMA: No evidence of acute intraparenchymal hemorrhage or infarct. Lucency in the left fr ontal subcortical white matter is compatible with chronic lacunar infarct. VENTRICLES & EXTRA-AXIAL SPACES: Ventricles are within normal limits. Basilar cisterns are patent. N o pathologic extra-axial fluid collection or mass. ORBITS: Orbital contents are unremarkable. SINUSES: Visualized paranasal sinuses and mastoid air cells are clear. OSSEOUS & SOFT TISSUES: Calvarium and skull base are intact. A 1.1 cm groundglass density in the mid line frontal bone above the frontal sinuses is present, suggestive of an intraosseous hemangioma. IMPRESSION: No acute intracranial pathology. Electronically signed by: Emily Rutledge MD (10/11/2020 8:17 AM) [id number]
--- NOTE | 2020-10-11 08:31 | RAD ---
PROCEDURE: XR SHOULDER_LEFT 2+ VIEWS STUDY DATE: 10/11/2020 CLINICAL INDICATION / HISTORY: Reason: trauma, PT FELL DOWN 1 STEP YESTERDAY, RANDALL FOOT PAIN / Spl. In structions: / History: . TECHNIQUE: AP internal and external rotation views with a Y- view were obtained of the left shoulder. COMPARISON: Left shoulder x-rays 10/14/2017 FINDINGS: No fracture, dislocation or bone destruction is identified. There are no degenerative fisher es at the left AC joint. Minimal osteophytic spurring on the humeral head is however present, compati ble with mild glenohumeral degenerative change. No calcifications are seen in relation to the rotator cuff insertion. Left chest dual-chamber pacemaker newly noted. IMPRESSION: No acute osseous abnormality in the left shoulder with mild glenohumeral degenerative ch peng redemonstrated. PROCEDURE: XR PELVIS 1-2V STUDY DATE: 10/11/2020 CLINICAL INDICATION / HISTORY: Reason: trauma, PT FELL DOWN 1 STEP YESTERDAY, RANDALL FOOT PAIN / Spl. In structions: / History: . TECHNIQUE:Single AP view of the pelvis was obtained COMPARISON: Abdomen pelvis CT of 05/21/2020 FINDINGS: The osseous structures are normally mineralized. There is normal bony alignment present wit h the femoral heads well-seated within the acetabuli. Left total hip arthroplasty is redemonstrated. There is no evidence of acute fracture or dislocation identified. Moderately advanced joints space na rrowing and osteophytic spurring on the femoral head on the right is present, consistent with hip deg enerative change. The overlying soft tissues are grossly unremarkable. IMPRESSION: No evidence of pelvic ring or hip fracture or dislocation PROCEDURE: XR KNEE 3 VIEWS STUDY DATE: 10/11/2020 CLINICAL INDICATION / HISTORY: Reason: trauma, PT FELL DOWN 1 STEP YESTERDAY, RANDALL FOOT PAIN / Spl. In structions: / History: . TECHNIQUE: AP, lateral, and tunnel views of the right and left knees. COMPARISON: None FINDINGS: The osseous structures are intact. The articular surfaces are smooth. The joint space is maintained. No intra-articular loose bodies. The alignment is within normal limits. The soft tiss ues are unremarkable. No obvious joint effusion. No radio-opaque foreign bodies are identified. IMPRESSION: No fracture or dislocation is identified in either the right or left knee. PROCEDURE: XR EXAM OF ANKLE_RIGHT 3VIEWS STUDY DATE: 10/11/2020 CLINICAL INDICATION / HISTORY: Reason: trauma, PT FELL DOWN 1 STEP YESTERDAY, RANDALL FOOT PAIN / Spl. In structions: / History: . TECHNIQUE: Right ankle 3 views. COMPARISON: None FINDINGS: The ankle mortise is approximated, and the talar dome is unremarkable. The joint space widt hs are maintained. No fracture or dislocation is identified. No soft tissue swelling is appreciated. Small calcaneal spur is present. IMPRESSION: No acute osseous abnormality in the right ankle. PROCEDURE: XR FEET 3 VIEWS STUDY DATE: 10/11/2020 CLINICAL INDICATION / HISTORY: Reason: trauma, PT FELL DOWN 1 STEP YESTERDAY, RANDALL FOOT PAIN / Spl. In structions: / History: . TECHNIQUE: AP, lateral and oblique views of the right and left foot. COMPARISON: None FINDINGS: No fracture or dislocation is identified. The bone density is normal. The joint space width s are maintained, and there are no erosions to suggest an inflammatory arthropathy. No soft tissue ab normality is seen. IMPRESSION: No acute osseous abnormality in either foot is demonstrated. Electronically signed by: Emily Rutledge MD (10/11/2020 8:29 AM) [id number]
== END 2020-10-11 09:26 | disposition home or self-care (01) ==
LOC: ER 07:33
DX: S40.012A Contusion of left shoulder, initial encounter (principal); S80.01XA Contusion of right knee, initial encounter; S90.31XA Contusion of right foot, initial encounter; S90.01XA Contusion of right ankle, initial encounter; S80.02XA Contusion of left knee, initial encounter; R42 Dizziness and giddiness; F41.9 Anxiety disorder, unspecified; J44.9 Chronic obstructive pulmonary disease, unspecified; F32.9 Major depressive disorder, single episode, unspecified; K21.9 Gastro-esophageal reflux disease without esophagitis; E78.00 Pure hypercholesterolemia, unspecified; I10 Essential (primary) hypertension; Z90.49 Acquired absence of other specified parts of digestive tract; Z90.710 Acquired absence of both cervix and uterus; Z91.040 Latex allergy status; Z88.8 Allergy status to other drugs, medicaments and biological substances; W18.39XA Other fall on same level, initial encounter; Y93.89 Activity, other specified; Y92.89 Other specified places as the place of occurrence of the external cause; Y99.8 Other external cause status
CPT/HCPCS: 70450; 72170; 73030; 73610; 99284; 73562-50; 73630-50

== ENCOUNTER → 2020-12-17 | Outpatient (CLI) | payer MEDICARE, OTHER ==
[~2020-12-17] MED LIST changes: -OMEP40CA45 PO; +OMEP40CA7 PO
[2020-12-17 09:15] LABS: BASO % 0 % (0-3); EOS # 0.1 x10^3/uL (0.0-0.7); EOS % 3 % (0-3); HEMATOCRIT 35.3 % (36.0-47.0); HEMOGLOBIN 11.6 g/dL (12.0-15.5); LYMPH # 1.7 x10^3/uL (1.0-4.8); LYMPH % 31 % (24-48); MEAN CORPUSCULAR HEMOGLOBIN 27 pg (25-35); MEAN CORPUSCULAR HGB CONC 33 g/dL (31-37); MEAN CORPUSCULAR VOLUME 83 fL (79-100); MONO # 0.5 x10^3/uL (0.0-1.1); MONO % 9 % (0-9); NEUT # 3.2 x10^3/uL (1.8-7.7); NEUT % 58 % (31-73); PLATELET COUNT 305 x10^3/uL (140-400); RED BLOOD COUNT 4.26 x10^6/uL (3.50-5.40); RED CELL DISTRIBUTION WIDTH 16.9 % (11.5-14.5); WHITE BLOOD COUNT 5.6 x10^3/uL (4.0-11.0)
[2020-12-17 09:36] LABS: ALBUMIN 3.9 g/dL (3.4-5.0); CREATININE 1.3 mg/dL (0.6-1.0); GFR 40.7; POTASSIUM 4.3 mmol/L (3.5-5.1)
[2020-12-18 01:08] LABS: HEMOGLOBIN A1C 5.8 % (4.8-5.6)
== END ==
LOC: SURGPAT 12:05
PROVIDERS: ATTEND Orthopaedic Surgery
DX: Z01.818 Encounter for other preprocedural examination (principal); M16.11 Unilateral primary osteoarthritis, right hip; Z79.899 Other long term (current) drug therapy; I48.0 Paroxysmal atrial fibrillation
CPT/HCPCS: 36415; 80048; 82040; 82306; 83036; 85025; 85610; 85651; 85730; 87641

== ENCOUNTER → 2021-08-08 | Outpatient (CLI) | payer MEDICARE, OTHER ==
--- NOTE | 2021-08-09 11:01 | CARD ---
MR#: [id number] Date of Study: 08/08/2021 Ordering Physician: LEONA STARK, Referring Physician: LEONA STARK, Tech: Francisca Parson [facility] APPROVED REPORT EXAM: Two-dimensional and M-mode echocardiogram with Doppler and color Doppler. Other Information Quality : AverageHR: 70bpm INDICATION COPD Atrial Fibrillation Surgery/Intervention Pacemaker: Date: 2020 RISK FACTORS Hypertension Hyperlipidemia 2D DIMENSIONS RVDd3.9 (2.9-3.5cm)Left Atrium(2D)3.6 (1.6-4.0cm) IVSd0.9 (0.7-1.1cm)Aortic Root(2D)3.0 (2.0-3.7cm) LVDd4.7 (3.9-5.9cm)LVOT Diameter2.0 (1.8-2.4cm) PWd0.9 (0.7-1.1cm)LVDs2.5 (2.5-4.0cm) FS (%) 46.2 %SV79.5 ml LVEF(%)77.6 (>50%) Aortic Valve AoV Peak Vince.136.9cm/sAoV VTI27.9cm AO Peak GR.7.5mmHgLVOT Peak Vince.100.8cm/s LVOT VTI 20.01cmAO Mean GR.4mmHg YANELY (VMAX)1.27xe2TQG (VTI)2.25cm2 Mitral Valve MV E Mhptkfux76.0cm/sMV DECEL KUHE098db MV A Whpadpbp94.6cm/sMV E Mean Gr.2mmHg MV ZMN50dlH/A Ratio0.8 MVA (PHT)3.71cm2 TDI E/Lateral E'12.4E/Medial E'11.1 Pulmonary Valve PV Peak Rxtapbjm39.6cm/sPV Peak Grad.4mmHg Tricuspid Valve TR P. Qhqcnxxy429qx/sRAP OVQVKGAU8eqIc TR Peak Gr.65okBpHMAY39qlGo Pulmonary Vein S1 Webtgtbr59.3cm/sD2 Vitzjtii52.3cm/s PVa qopwoxtg542exwc LEFT VENTRICLE The left ventricle is normal size. There is normal left ventricular wall thickness. The left ventricu lar systolic function is normal. The Ejection Fraction is 55-60%. There is normal LV segmental wall m otion. Transmitral Doppler flow pattern is Grade I-abnormal relaxation pattern. RIGHT VENTRICLE The right ventricle is mildly dilated. There is normal right ventricular wall thickness. The right ve ntricular systolic function is normal. There is a pacemaker lead in the right ventricle. ATRIA The left atrium size is normal. The right atrium size is normal. The interatrial septum is intact wit h no evidence for an atrial septal defect or patent foramen ovale as noted on 2-D or Doppler imaging. AORTIC VALVE The aortic valve is calcified but opens well. Doppler and Color Flow revealed trace aortic regurgitat ion. There is no significant aortic valvular stenosis. Calculated aortic valve area is 1.88 cm2 with maximum pressure gradient of 11 mmHg and mean pressure gradient of 6 mmHg. MITRAL VALVE The mitral valve is normal in structure and function. There is no evidence of mitral valve prolapse. There is no mitral valve stenosis. Doppler and Color-flow revealed trace mitral regurgitation. TRICUSPID VALVE The tricuspid valve is normal in structure and function. Doppler and Color Flow revealed trace tricus pid regurgitation with an estimated PAP of 32 mmHg. There is no tricuspid valve stenosis. GREAT VESSELS The aortic root is normal in size. The ascending aorta is normal in size. The IVC is normal in size a nd collapses >50% with inspiration. PERICARDIAL EFFUSION There is no evidence of significant pericardial effusion. Critical Notification Critical Value: No <Conclusion> The left ventricular systolic function is normal. The Ejection Fraction is 55-60%. There is normal LV segmental wall motion. Pacer wire noted RA/RV. Transmitral Doppler flow pattern is Grade I-abnormal relaxation pattern. Trace mitral regurgitation. Trace tricuspid regurgitation with an estimated PAP of 32 mmHg. There is no evidence of significant pericardial effusion. Signed by : Leona Stark, Electronically Approved : 08/09/2021 11:00:36
== END ==
LOC: ECHO 09:49
PROVIDERS: ATTEND Internal Medicine Cardiovascular Disease
DX: I35.0 Nonrheumatic aortic (valve) stenosis (principal); I48.0 Paroxysmal atrial fibrillation; J44.9 Chronic obstructive pulmonary disease, unspecified
CPT/HCPCS: 93306

== ENCOUNTER 2021-12-05 08:01 | Emergency (ER) | payer MEDICARE, OTHER ==
[~2021-12-05] VITALS: Ht 170.2 cm; Wt 105.1 kg
[2021-12-05 08:30] VITALS: BP 131/62
[2021-12-05] MEDS ORDERED: MORPHINE SULFATE 4 MG/ML INJ. IVP ONE (09:00)
--- NOTE | 2021-12-05 09:18 | RAD ---
Right shoulder 3 views, right elbow 3 views. HISTORY:. HISTORY: Trauma, pain, fell on right elbow Right shoulder 3 views were taken of the right shoulder. There is not evidence of an acute fracture or dislocation o r acute osseous abnormality. Right elbow 3 views were taken of the right elbow. There is a posterior dislocation of the elbow. There is a frac ture at the coronoid process of the ulna. There are small joint bodies. Fat pads at the elbow are dis placed. IMPRESSION: 1. Posterior dislocation of the elbow. 2. Fracture at the anterior proximal ulna at the coronoid process. 3. No fracture or dislocation at the shoulder. Electronically signed by: Stephen Mejia MD (12/05/2021 9:16 AM) [id number]
--- NOTE | 2021-12-05 10:38 | RAD ---
EXAM: Left elbow, 3 views. HISTORY: Closed reduction. COMPARISON: 12/05/2021 FINDINGS: 3 views of the right elbow are obtained. There has been reduction of the elbow into anatomi c alignment. There is a displaced fracture involving the coronoid process of the ulna. No convincing radial or distal humeral fracture is seen. There is no associated joint effusion. There are chronic a ppearing ossicles adjacent to the lateral upper condyle, stable in appearance. IMPRESSION: 1. Interval closed reduction of the right elbow. 2. Displaced fracture of the coronoid process and associated elbow effusion. Electronically signed by: Bernadette Knott MD (12/05/2021 10:35 AM) [id number]
[2021-12-05] MEDS ORDERED: ACETAMINOPHEN 500 MG TABLET PO ONE (10:45)
[2021-12-05] MEDS ORDERED: HYDROmorphone 2 MG/ML INJ. IVP ONE (11:00)
--- NOTE | 2021-12-05 11:49 | PHYS DOC ---
Past Medical History Past Medical History: Anxiety, Asthma, COPD, Depression, GERD, High Aarti sterol, Hypertension, Other Additional Past Medical Histor: TREMOR Past Surgical History: No Surgical History Additional Past Surgical Histo: left hip rx Smoking Status: Former Smoker Alcohol Use: None Drug Use: None General Adult EDM: Chief Complaint: MECHANICAL FALL HPI: HPI: Patient is a 71 year old female who presents with right elbow pain after sustaining a fall in her yard while she was using a weed Khushbu as a cane. Patient states that she uses a cane at baseline for ambulation however she used a weed Khushbu for a cane since it was nearby. Patient states that it slipped and she lost her balance and fell on an outstretched right hand. She states she had right elbow pain immediately after. She was able to call for help. She did not hit her head, she did not lose consciousness, she did not have any other symptoms. She states it was a mechanical fall, she has had several in the last few years. Review of Systems: Review of Systems: Constitutional: Denies fever or chills. [] Eyes: Denies change in visual acuity. [] HENT: Denies nasal congestion or sore throat. [] Respiratory: Denies cough or shortness of breath. [] Cardiovascular: Denies chest pain or edema. [] GI: Denies abdominal pain, nausea, vomiting, bloody stools or diarrhea. [] : Denies dysuria. [] Musculoskeletal: Denies back pain, positive right elbow pain [] Integument: Denies rash. [] Neurologic: Denies headache, focal weakness or sensory changes. [] Endocrine: Denies polyuria or polydipsia. [] Lymphatic: Denies swollen glands. [] Psychiatric: Denies depression or anxiety. [] Heart Score: C/O Chest Pain: No Risk Factors: Risk Factors: DM, Current or recent (<one month) smoker, HTN, HLP, family history of CAD, obesity. Risk Scores: Score 0 - 3: 2.5% MACE over next 6 weeks - Discharge Home Score 4 - 6: 20.3% MACE over next 6 weeks - Admit for Clinical Observation Score 7 - 10: 72.7% MACE over next 6 weeks - Early Invasive Strategies Current Medications: Current Medications Medications (Trade) Dose Ordered Sig/Wanda Start Time Stop Time Status Last Admin Dose Admin Acetaminophen (Tylenol) 1,000 mg 1X ONCE 12/05/21 10:45 12/05/21 10:46 DC 12/05/21 10:58 1,000 MG Hydromorphone HCl (Dilaudid) 1 mg 1X ONCE 12/05/21 11:00 12/05/21 11:01 DC 12/05/21 11:01 1 MG Morphine Sulfate (Morphine Sulfate) 4 mg 1X ONCE 12/05/21 09:00 12/05/21 09:02 DC 12/05/21 09:21 4 MG Allergies: Allergies: Allergies Coded Allergies Type Severity Reaction Last Updated Verified diltiazem Allergy Severe severe bradycardia w/syncope 12/05/21 Yes regadenoson Allergy Severe LIPS SWELLED AND HIVES ON CHEST AND ARMS 12/05/21 Yes citalopram Allergy Intermediate hives 12/05/21 Yes Latex, Natural Rubber Allergy Mild hives 12/05/21 Yes I S O L A T I O N *CONTACT* Allergy Unknown 12/05/21 Yes Physical Exam: PE: Constitutional: Well developed, well nourished, no acute distress, non-toxic appearance. [] HENT: Normocephalic, atraumatic, bilateral external ears normal, oropharynx moist, no oral exudates, nose normal. [] Eyes: PERRLA, EOMI, conjunctiva normal, no discharge. [] Neck: Normal range of motion, no tenderness, supple, no stridor. [] Cardiovascular:Heart rate regular rhythm, no murmur [] Lungs & Thorax: Bilateral breath sounds clear to auscultation [] Abdomen: Bowel sounds normal, soft, no tenderness, no masses, no pulsatile masses. [] Skin: Warm, dry, no erythema, no rash. [] Back: No tenderness, no CVA tenderness. [] Extremities: Positive tenderness at right elbow, obvious deformity noted [] neurovascularly intact after reduction and splinting Neurologic: Alert and oriented X 3, normal motor function, normal sensory function, no focal deficits noted. [] Psychologic: Affect normal, judgement normal, mood normal. [] Current Patient Data: Vital Signs: Vital Signs Date Time Temp Pulse Resp B/P (MAP) Pulse Ox O2 Delivery O2 Flow Rate FiO2 12/05/21 11:01 18 98 Room Air 12/05/21 08:30 98.1 66 131/62 (85) 98.1 EKG: EKG: [] Radiology/Procedures: Radiology/Procedures: X-ray consistent with right elbow dislocation Displaced fracture of the coronoid process Follow-up x-ray: satisfactory alignment post splinting Reduction of right elbow: Patient placed in prone position, no anesthetic was used. Downward traction of the elbow along with manipulation at the posterior elbow resulted in good alignment and reduction. Patient tolerated procedure well. Patient had good pain relief post procedurally. Impression: Right elbow dislocation and fracture of coronoid process Course & Med Decision Making: Course & Med Decision Making Pertinent Labs and Imaging studies reviewed. (See chart for details) X-rays reviewed, mechanical fall is likely diagnosis. Reduction resulted in good outcome with good pain relief. Patient placed in a splint with a sling with a follow-up to orthopedics. Patient stated that she would follow-up with orthopedics. Patient encouraged to return to the emergency department she is having new or evolving symptoms. All questions answered. Patient agreed with the plan of action. Patient discharged in stable condition. Carlotta Disclaimer: Carlotta Disclaimer: This electronic medical record was generated, in whole or in part, using a voice recognition dictation system. Departure Departure Referrals: SIDDHARTH PARADA MD (PCP) RODRIGO CROUCH MD December 05, 2021 11:49
[2021-12-05] MEDS ORDERED: TRAM50TA PO (11:55)
--- NOTE | 2021-12-05 12:28 | RAD ---
EXAMINATION: XR ELBOW_RIGHT. HISTORY: 71 years Female Reason: post splint- WITH NURSE @1123 COMPARISON: Well hours earlier. FINDINGS: Interval closed reduction is performed with the splint placement. The coronoid the process fracture a nd the fracture fragment near the lateral epicondyles is seen. Positioning is suboptimal however ther e is no definite alignment abnormality. No dislocation at this point. IMPRESSION: Post closed reduction and splint placement. Coronoid process fracture and tiny fracture fragment near the lateral epicondyle and condyle seen. Electronically signed by: Sarmad Bustamante MD (12/05/2021 12:26 PM) [id number]
== END 2021-12-05 12:22 | disposition home or self-care (01) ==
LOC: ER 08:01
DX: M25.521 Pain in right elbow (principal); G89.11 Acute pain due to trauma; J44.9 Chronic obstructive pulmonary disease, unspecified; K21.9 Gastro-esophageal reflux disease without esophagitis; E78.00 Pure hypercholesterolemia, unspecified; I10 Essential (primary) hypertension; Z87.891 Personal history of nicotine dependence; W18.39XA Other fall on same level, initial encounter; Y93.89 Activity, other specified; Y92.89 Other specified places as the place of occurrence of the external cause; Y99.8 Other external cause status
CPT/HCPCS: 29125; 73030; 73070; 73080; 96374; 96375; 99284; A4565; J1170; J2270

== ENCOUNTER → 2021-12-17 | Outpatient (CLI) | payer MEDICARE, OTHER ==
[2021-12-05 08:30] VITALS: BP 131/62
[~2021-12-17] MED LIST changes: +TRAM50TA PO
--- NOTE | 2021-12-17 11:36 | RAD ---
EXAMINATION: CT RIGHT UPPER EXTREMITY WO, 12/17/2021 8:51 AM CLINICAL INDICATION: Prior right elbow dislocations COMPARISON: Right elbow radiograph 12/05/2021 TECHNIQUE: Helical CT imaging performed of the right elbow without the use of intravenous contrast. S agittal and coronal reformats were obtained. One or more of the following individualized dose reduction techniques were utilized for this examinat ion: 1. Automated exposure control 2. Adjustment of the mA and/or kV according to patient size 3. Use of iterative reconstruction technique. FINDINGS: The exam is limited by body habitus. Alignment is normal. There is a displaced coronoid pro cess fracture fragment measuring 1.1 x 0.7 x 1.5 cm (image 72 sagittal series and image 76 axial seri es). There is questionable offset at the articular surface of the distal humerus between the trochlea and capitellum, which could be a minimally displaced fracture (image 87, series 7), although this co uld also be due to artifact as there is no other definite intra-articular distal humerus fracture is seen in the other imaging planes. Small amount of ossification along the posterior medial aspect of t he humerus is also indeterminate and could be degenerative or tiny osseous fragments (image 46, serie s 6). No definite radial fracture. Subcutaneous soft tissues normal. IMPRESSION: 1. Displaced coronoid process fracture. 2. Limited exam due to body habitus and artifact. There is questionable offset of the articular surfa ce of the distal humerus that could be a minimally displaced fracture or due to artifact. There is al so a small amount of ossification along the posterior medial aspect of the distal humerus that is ind eterminate and could be degenerative or tiny osseous fragments. Electronically signed by: Rachana Valencia MD (12/17/2021 11:34 AM) [facility]
== END ==
LOC: CT 08:18
PROVIDERS: ATTEND Orthopaedic Surgery Sports Medicine
DX: S53.104A Unspecified dislocation of right ulnohumeral joint, initial encounter (principal); S52.041A Displaced fracture of coronoid process of right ulna, initial encounter for closed fracture; X58.XXXA Exposure to other specified factors, initial encounter; Y93.89 Activity, other specified; Y92.89 Other specified places as the place of occurrence of the external cause; Y99.8 Other external cause status
CPT/HCPCS: 73200